=== PATIENT | female | born 1950 | race Caucasian/White ===

== ENCOUNTER 2016-11-05 15:52 | Emergency (ER) | payer MEDICARE ==
[2016-11-05] MEDS ORDERED: oxyCODONE/Acetamin 5/325 MG* TAB PO ONE (18:19)
[2016-11-05 18:31] LABS: Hematocrit 42 % (35-47); Hemoglobin 13.9 g/dl (12.0-16.0); Mean Corpuscular HGB Conc 33 g/dl (31-36); Mean Corpuscular Hemoglobin 29 pg (27-31); Mean Corpuscular Volume 88 fL (80-97); Mean Platelet Volume 8 um3 (7.4-10.4); Red Blood Count 4.75 10^6/ul (4.0-5.4); Red Cell Distribution Width 14 % (10.5-15); White Blood Count 14.9 10^3/ul (3.5-10.8)
[2016-11-05 18:47] LABS: Albumin 4.1 g/dL (3.2-5.2); BUN/Creatinine Ratio 24.7 (8-20); C Reactive Protein 3.86 mg/L (< 5.00); Calcium 9.6 mg/dL (8.6-10.3); EGFR African American 91.3 (>60); Globulin 3.1 g/dL (2-4); Potassium 3.7 mmol/L (3.5-5.0); Total Bilirubin 0.4 mg/dL (0.2-1.0); Total Protein 7.2 g/dL (6.4-8.9)
--- NOTE | 2016-11-05 18:48 | RAD ---
CLINICAL HISTORY: Right flank pain COMPARISON: March 30, 2015 TECHNIQUE: Multiple contiguous axial CT scans were obtained of the abdomen and pelvis, without intravenous contrast enhancement. Coronal and sagittal multiplanar reformations are submitted for review. Oral contrast was not administered. FINDINGS: The study is limited by the lack of intravenous contrast. This limits evaluation of the solid organs and vasculature. LUNG BASES: The lung bases are clear. LIVER: The liver is diffusely low in attenuation compared to the spleen. There are no focal hepatic parenchymal masses. BILE DUCTS: There is no intrahepatic or extrahepatic biliary dilatation. GALLBLADDER: The gallbladder is normal, without pericholecystic inflammatory change. PANCREAS: The pancreas is normal, without mass or ductal dilatation. SPLEEN: Normal in size and appearance. UPPER GI TRACT: Evaluation of the gastrointestinal tract is limited by incomplete gastric distention. There is a 1.7 cm diverticulum of the second stage of the duodenum. SMALL BOWEL AND MESENTERY: The small bowel is normal in contour, course, and caliber. There is no obstruction or dilatation. COLON: There are multiple diverticula of the descending and sigmoid colon. There is no pericolonic inflammatory change. There is a tubular, vermiform, hollow viscus that is blind ending, and originates from the cecum, consistent with a normal appendix. There is no periappendiceal inflammatory change. This is best seen on axial images 111 through 120 ADRENALS: Normal bilaterally. KIDNEYS: A simple right renal cyst is noted. There is no appreciable hydronephrosis or nephrolithiasis BLADDER: The bladder is smooth in contour. PELVIC ORGANS: The pelvic organs are not visualized. AORTA: The aorta is normal. IVC: Unremarkable LYMPH NODES: There is no lymphadenopathy by size criteria. ABDOMINAL WALL: There is no evidence for abdominal wall hernia. BONES AND SOFT TISSUES: There are mild diffuse degenerative changes. OTHER: None IMPRESSION: 1. NO HYDRONEPHROSIS OR NEPHROLITHIASIS. 2. FATTY INFILTRATION OF LIVER. 3. DIVERTICULOSIS
[2016-11-05 19:26] LABS: Urine Bilirubin Negative (Negative); Urine Glucose Negative (Negative); Urine Nitrite Negative (Negative)
--- NOTE | 2016-11-05 19:44 | ED ---
Robert Keys Janilya, scribed for Mulugeta hSen MD on 11/05/16 at 1752 . Abdominal Pain/Female - HPI Summary HPI Summary: A 65 y/o female came in to [facility] presenting w/ a gradual onset of constant right sided back pain under the ribs starting Monday, October 31, 2016. She was seen by her PCP on the same day of onset of the pain. Shingles was ruled out because there were no rashes. Her urinalysis showed e.coli and was put on Abx. For pain management, she was put on Vicodin. Pt states the pain is very severe of 8/10 rating. It is localized in the back, and sometimes, it radiates to the her right flank. Vicodin temporarily decreases the pain to 3/10. Touch makes the pain worse. There is also very mild fever. Pt denies diarrhea, on the opposite, she's had difficulty moving bowels, and so she's been taking a stool softener. Pt denies dysuria, muscle spasms. Upon examination here in the room, there are a few non-prominent pinhead rashes on the right side of her back and a long erythematous rash across her right flank. PMHx ulcerative colitis 10 years ago. - History of Current Complaint Chief Complaint: EDGeneral Stated Complaint: LT FLANK PAIN Time Seen by Provider: 11/05/16 17:49 Hx Obtained From: Patient Onset/Duration: Gradual Onset, Lasting Days, Still Present Timing: Constant Severity Initially: Moderate Severity Currently: Moderate Pain Intensity: 7 Pain Scale Used: 0-10 Numeric Location: Discrete At: RUQ, Flank Radiates: No Aggravating Factor(s): Other: - Touch Alleviating Factor(s): Medications - Vicodin Allergies/Adverse Reactions: Allergies Allergy/AdvReac Type Severity Reaction Status Date / Time Amoxicillin Allergy Severe Rash Verified 03/30/15 13:12 Adhesive Tape Allergy Intermediate Rash Verified 03/30/15 13:12 Clopidogrel [From Plavix] Allergy Unknown Verified 02/15/16 16:22 Reaction Details Sucrose Allergy Unknown Verified 02/15/16 16:22 Reaction Details Pregabalin [From Lyrica] AdvReac Intermediate Altered Verified 03/30/15 13:12 Mental Status Quinolones AdvReac Intermediate See Comment Verified 03/30/15 13:12 NSAIDs AdvReac Unknown See Comment Verified 03/30/15 13:12 HFA Allergy Coughing Uncoded 03/30/15 13:12 beta blockers AdvReac Severe See Comment Uncoded 03/30/15 13:12 keytac AdvReac Intermediate Diarrhea Uncoded 03/30/15 13:12 PMH/Surg Hx/FS Hx/Imm Hx Previously Healthy: Yes Endocrine/Hematology History: Reports: Hx Thyroid Disease - hyperthyroid Denies: Hx Diabetes Cardiovascular History: Reports: Other Cardiovascular Problems/Disorders - cardiomyopathy Denies: Hx Congestive Heart Failure, Hx Hypertension - BORDERLINE, Hx Pacemaker/ICD Respiratory History: Reports: Hx Asthma Denies: Hx Chronic Obstructive Pulmonary Disease (COPD), Other Respiratory Problems/Disorders GI History: Reports: Hx Diverticulosis - and diverticulitis Denies: Hx Ulcer History: Reports: Other Problems/Disorders - bladder prolapse Denies: Hx Renal Disease Musculoskeletal History: Reports: Hx Arthritis Denies: Hx Rheumatoid Arthritis, Hx Osteoporosis Sensory History: Reports: Hx Contacts or Glasses Denies: Hx Hearing Aid Opthamlomology History: Reports: Hx Contacts or Glasses Neurological History: Reports: Other Neuro Impairments/Disorders - 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, menier's Psychiatric History: Reports: Hx Panic Disorder - Cancer History Hx Chemotherapy: No - Surgical History Surgery Procedure, Year, and Place: Hysterectomy Oct 25; bladder biopsy, BLADDER MESH (PROLAPSE); tubal; sinus surgery; heart cath (no stents); Infectious Disease History: No Infectious Disease History: Reports: Hx Hepatitis - Hep A, 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 Denies: Hx Human Immunodeficiency Virus (HIV), History Other Infectious Disease, Traveled Outside the [place] in Last 30 Days - Family History Known Family History: Positive: Hypertension, Other - autoimmune conditions Family History: R & n/C - Social History Occupation: Retired Lives: With Family Alcohol Use: None Hx Substance Use: No Substance Use Type: Reports: None Hx Tobacco Use: Yes Smoking Status (MU): Former Smoker Review of Systems Positive: Fever - mild fever Positive: Other - flank pain Positive: Arthralgia - back pain on the right, Myalgia - back pain on the right Positive: Rash - few rashes on right side of back and right flank All Other Systems Reviewed And Are Negative: Yes Physical Exam Triage Information Reviewed: Yes Vital Signs On Initial Exam: Initial Vitals Temp Pulse Resp BP Pulse Ox 97.9 F 96 20 174/86 97 11/05/16 16:04 11/05/16 16:04 11/05/16 16:04 11/05/16 16:04 11/05/16 16:04 Vital Signs Reviewed: Yes Appearance: Positive: Well-Appearing, No Pain Distress Skin: Positive: Warm, Skin Color Reflects Adequate Perfusion, Dry, Other - Erythematous rash on right lower lateral chest of 8 cm by 4 cm measurements Head/Face: Positive: Normal Head/Face Inspection Eyes: Positive: EOMI, FILOMENA ENT: Positive: Normal ENT inspection Neck: Positive: Supple, Nontender Respiratory/Lung Sounds: Positive: Clear to Auscultation, Breath Sounds Present Cardiovascular: Positive: RRR Abdomen Description: Positive: Nontender, Soft Bowel Sounds: Positive: Present Musculoskeletal: Positive: Normal, Strength/ROM Intact Neurological: Positive: Normal, Sensory/Motor Intact, Alert, Oriented to Person Place, Time Psychiatric: Positive: Affect/Mood Appropriate Diagnostics - Vital Signs Vital Signs Temp Pulse Resp BP Pulse Ox 11/05/16 17:23 97.6 F 91 20 171/90 97 11/05/16 16:04 97.9 F 96 20 174/86 97 - Laboratory Lab Results: Lab Results 11/05/16 11/05/16 11/05/16 Range/Units 18:20 18:20 18:20 WBC 14.9 H (3.5-10.8) 10^3/ul RBC 4.75 (4.0-5.4) 10^6/ul Hgb 13.9 (12.0-16.0) g/dl Hct 42 (35-47) % MCV 88 (80-97) fL MCH 29 (27-31) pg MCHC 33 (31-36) g/dl RDW 14 (10.5-15) % Plt Count 290 (150-450) 10^3/ul MPV 8 (7.4-10.4) um3 Neut % (Auto) 86.5 H (38-83) % Lymph % (Auto) 10.6 L (25-47) % Hinds % (Auto) 2.2 (1-9) % Eos % (Auto) 0.1 (0-6) % Baso % (Auto) 0.6 (0-2) % Absolute Neuts (auto) 12.9 H (1.5-7.7) 10^3/ul Absolute Lymphs (auto) 1.6 (1.0-4.8) 10^3/ul Absolute Monos (auto) 0.3 (0-0.8) 10^3/ul Absolute Eos (auto) 0 (0-0.6) 10^3/ul Absolute Basos (auto) 0.1 (0-0.2) 10^3/ul Absolute Nucleated RBC 0 10^3/ul Nucleated RBC % 0 Sodium 135 (133-145) mmol/L Potassium 3.7 (3.5-5.0) mmol/L Chloride 102 (101-111) mmol/L Carbon Dioxide 28 (22-32) mmol/L Anion Gap 5 (2-11) mmol/L BUN 20 (6-24) mg/dL Creatinine 0.81 (0.51-0.95) mg/dL Est GFR ( Amer) 91.3 (>60) Est GFR (Non-Af Amer) 71.0 (>60) BUN/Creatinine Ratio 24.7 H (8-20) Glucose 124 H (70-100) mg/dL Lactic Acid 1.0 (0.5-2.0) mmol/L Calcium 9.6 (8.6-10.3) mg/dL Total Bilirubin 0.40 (0.2-1.0) mg/dL AST 19 (13-39) U/L ALT 17 (7-52) U/L Alkaline Phosphatase 66 (34-104) U/L C-Reactive Protein 3.86 (< 5.00) mg/L Total Protein 7.2 (6.4-8.9) g/dL Albumin 4.1 (3.2-5.2) g/dL Globulin 3.1 (2-4) g/dL Albumin/Globulin Ratio 1.3 (1-3) Lipase 24 (11.0-82.0) U/L Urine Color Urine Appearance Urine pH (5-9) Ur Specific [place] (1.010-1.030) Urine Protein (Negative) Urine Ketones (Negative) Urine Blood (Negative) Urine Nitrate (Negative) Urine Bilirubin (Negative) Urine Urobilinogen (Negative) Ur Leukocyte Esterase (Negative) Urine Glucose (Negative) 11/05/16 Range/Units 19:08 WBC (3.5-10.8) 10^3/ul RBC (4.0-5.4) 10^6/ul Hgb (12.0-16.0) g/dl Hct (35-47) % MCV (80-97) fL MCH (27-31) pg MCHC (31-36) g/dl RDW (10.5-15) % Plt Count (150-450) 10^3/ul MPV (7.4-10.4) um3 Neut % (Auto) (38-83) % Lymph % (Auto) (25-47) % Hinds % (Auto) (1-9) % Eos % (Auto) (0-6) % Baso % (Auto) (0-2) % Absolute Neuts (auto) (1.5-7.7) 10^3/ul Absolute Lymphs (auto) (1.0-4.8) 10^3/ul Absolute Monos (auto) (0-0.8) 10^3/ul Absolute Eos (auto) (0-0.6) 10^3/ul Absolute Basos (auto) (0-0.2) 10^3/ul Absolute Nucleated RBC 10^3/ul Nucleated RBC % Sodium (133-145) mmol/L Potassium (3.5-5.0) mmol/L Chloride (101-111) mmol/L Carbon Dioxide (22-32) mmol/L Anion Gap (2-11) mmol/L BUN (6-24) mg/dL Creatinine (0.51-0.95) mg/dL Est GFR ( Amer) (>60) Est GFR (Non-Af Amer) (>60) BUN/Creatinine Ratio (8-20) Glucose (70-100) mg/dL Lactic Acid (0.5-2.0) mmol/L Calcium (8.6-10.3) mg/dL Total Bilirubin (0.2-1.0) mg/dL AST (13-39) U/L ALT (7-52) U/L Alkaline Phosphatase (34-104) U/L C-Reactive Protein (< 5.00) mg/L Total Protein (6.4-8.9) g/dL Albumin (3.2-5.2) g/dL Globulin (2-4) g/dL Albumin/Globulin Ratio (1-3) Lipase (11.0-82.0) U/L Urine Color Yellow Urine Appearance Clear Urine pH 7.0 (5-9) Ur Specific [place] 1.010 (1.010-1.030) Urine Protein Negative (Negative) Urine Ketones Negative (Negative) Urine Blood Negative (Negative) Urine Nitrate Negative (Negative) Urine Bilirubin Negative (Negative) Urine Urobilinogen Negative (Negative) Ur Leukocyte Esterase Negative (Negative) Urine Glucose Negative (Negative) Result Diagrams: 11/05/16 18:20 11/05/16 18:20 Lab Statement: Any lab studies that have been ordered have been reviewed, and results considered in the medical decision making process. - CT abd/pel CT Interpretation: Positive (See Comments) - IMPRESSION: 1. NO HYDRONEPHROSIS OR NEPHROLITHIASIS. 2. FATTY INFILTRATION OF LIVER. 3. DIVERTICULOSIS CT Interpretation Completed By: Radiologist Abdominal Pain Fem Course/Dx - Course Course Of Treatment: RASH FOUND ON RT LOWER LATERAL CHEST WHICH MAY REPRESENT SHINGLES. DISCUSSED RESULTS WITH PATIENT. SHE WILL CONTINUE THE MACROBID AND ANTIVIRAL. WE DISCUSSED INCREASING HER NORCO 5/325MG TO Q 4 HOURS PRN. DISCHARGE HOME STABLE. - Diagnoses Provider Diagnoses: Flank pain, Shingles Discharge - Discharge Plan Condition: Stable Disposition: HOME Patient Education Materials: Shingles (ED), Flank Pain (ED) Referrals: Dean Jasmine MD [Primary Care Provider] - Additional Instructions: FOLLOW UP WITH YOUR DOCTOR. YOU CAN TAKE YOUR NORCO 5/325MG EVERY 4 HOURS NEEDED. RETURN TO THE EMERGENCY DEPARTMENT FOR ANY WORSENING OF YOUR CONDITION; PAIN, FEVER, YOU FEEL ILL OR QUESTIONS OR CONCERNS. The documentation as recorded by the Robert thomas Janilya accurately reflects the service I personally performed and the decisions made by me, Mulugeta Shen MD.
[2016-11-05 20:07] VITALS: BP 152/88
== END 2016-11-05 19:52 | disposition home or self-care (01) ==
LOC: ED 15:52
DX: R10.9 Unspecified abdominal pain (principal); B02.9 Zoster without complications; E03.9 Hypothyroidism, unspecified; Z87.891 Personal history of nicotine dependence; I42.9 Cardiomyopathy, unspecified; J45.909 Unspecified asthma, uncomplicated; Z88.0 Allergy status to penicillin; K76.0 Fatty (change of) liver, not elsewhere classified; K57.90 Diverticulosis of intestine, part unspecified, without perforation or abscess without bleeding
CPT/HCPCS: 36415; 74176; 80053; 81003; 83605; 83690; 85025; 86140; 99283; A9270-GY

== ENCOUNTER 2016-11-09 14:45 | Emergency (ER) | payer MEDICARE ==
[2016-11-09 17:44] VITALS: BP 151/66
[2016-11-09] MEDS ORDERED: oxyCODONE/Acetamin 10/325(NF) TAB PO ONE (19:02)
--- NOTE | 2016-11-09 19:14 | ED ---
Efren Keys Billy, scribed for Mulugeta Shen MD on 11/09/16 at 1841 . Complex/Multi-Sys Presentation - HPI Summary HPI Summary: Patient is a 65 year-old female coming to [facility] presenting with increased pain and rash which she believes is due to shingles. Rash is located on the right- sided thoracic back region, where she complains of pain "like a knife in her back." She also complains of right-sided abdominal pain, worse with palpation. She states that she has had no changes in appetite or bladder/bowel movements. Her pain has been improved with oxycodone; pain severity 8/10 in the morning, but reduced to 5/10 with oxycodone. - History Of Current Complaint Chief Complaint: EDGeneral Time Seen by Provider: 11/09/16 18:30 Hx Obtained From: Patient Onset/Duration: Gradual Onset, Lasting Days, Still Present Timing: Constant Severity Currently: Moderate Severity Initially: Moderate Location: Pain At: - right-sided mid-back and right-sided abdomen Aggravating Factor(s): palpation makes abdominal pain worse Alleviating Factor(s): oxycodone Associated Signs And Symptoms: Positive: Abdominal Pain, Other - rash - Allergies/Home Medications Allergies/Adverse Reactions: Allergies Allergy/AdvReac Type Severity Reaction Status Date / Time Amoxicillin Allergy Severe Rash Verified 03/30/15 13:12 Adhesive Tape Allergy Intermediate Rash Verified 03/30/15 13:12 Clopidogrel [From Plavix] Allergy Unknown Verified 02/15/16 16:22 Reaction Details Sucrose Allergy Unknown Verified 02/15/16 16:22 Reaction Details Pregabalin [From Lyrica] AdvReac Intermediate Altered Verified 03/30/15 13:12 Mental Status Quinolones AdvReac Intermediate See Comment Verified 03/30/15 13:12 NSAIDs AdvReac Unknown See Comment Verified 03/30/15 13:12 HFA Allergy Coughing Uncoded 03/30/15 13:12 beta blockers AdvReac Severe See Comment Uncoded 03/30/15 13:12 keytac AdvReac Intermediate Diarrhea Uncoded 03/30/15 13:12 PMH/Surg Hx/FS Hx/Imm Hx Endocrine/Hematology History: Reports: Hx Thyroid Disease - hyperthyroid Denies: Hx Diabetes Cardiovascular History: Reports: Other Cardiovascular Problems/Disorders - cardiomyopathy Denies: Hx Congestive Heart Failure, Hx Hypertension - BORDERLINE, Hx Pacemaker/ICD Respiratory History: Reports: Hx Asthma Denies: Hx Chronic Obstructive Pulmonary Disease (COPD), Other Respiratory Problems/Disorders GI History: Reports: Hx Diverticulosis - and diverticulitis Denies: Hx Ulcer History: Reports: Other Problems/Disorders - bladder prolapse Denies: Hx Renal Disease Musculoskeletal History: Reports: Hx Arthritis Denies: Hx Rheumatoid Arthritis, Hx Osteoporosis Sensory History: Reports: Hx Contacts or Glasses Denies: Hx Hearing Aid Opthamlomology History: Reports: Hx Contacts or Glasses Neurological History: Reports: Other Neuro Impairments/Disorders - 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, menier's Psychiatric History: Reports: Hx Panic Disorder - Cancer History Hx Chemotherapy: No - Surgical History Surgery Procedure, Year, and Place: Hysterectomy Oct 25; bladder biopsy, BLADDER MESH (PROLAPSE); tubal; sinus surgery; heart cath (no stents); Infectious Disease History: No Infectious Disease History: Reports: Hx Hepatitis - Hep A, 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 Denies: Hx Human Immunodeficiency Virus (HIV), History Other Infectious Disease, Traveled Outside the [place] in Last 30 Days - Family History Known Family History: Positive: Hypertension, Other - autoimmune conditions - Social History Alcohol Use: None Hx Substance Use: No Substance Use Type: Reports: None Hx Tobacco Use: Yes Smoking Status (MU): Former Smoker Review of Systems Positive: Abdominal Pain Positive: Rash, Other - pain d/t shingles in the back Neurological: Other - "vertigo" All Other Systems Reviewed And Are Negative: Yes Physical Exam Triage Information Reviewed: Yes Vital Signs On Initial Exam: Initial Vitals Temp Pulse Resp BP Pulse Ox 99.9 F 90 20 162/70 97 11/09/16 14:49 11/09/16 14:49 11/09/16 14:49 11/09/16 14:49 11/09/16 14:49 Vital Signs Reviewed: Yes Appearance: Positive: Well-Appearing, No Pain Distress Skin: Positive: Warm, Skin Color Reflects Adequate Perfusion, Dry, Other - Approximately a dozen punctate erythematous lesions on the right lower thoracic skin. Head/Face: Positive: Normal Head/Face Inspection Eyes: Positive: EOMI, FILOMENA ENT: Positive: Normal ENT inspection Neck: Positive: Supple, Nontender Respiratory/Lung Sounds: Positive: Clear to Auscultation, Breath Sounds Present Cardiovascular: Positive: RRR Abdomen Description: Positive: Soft, Other: - Tenderness of the right-sided abdomen. Musculoskeletal: Positive: Normal, Strength/ROM Intact Neurological: Positive: Normal, Sensory/Motor Intact, Alert, Oriented to Person Place, Time Psychiatric: Positive: Affect/Mood Appropriate Diagnostics - Vital Signs Vital Signs Temp Pulse Resp BP Pulse Ox 11/09/16 17:35 98.4 F 67 16 151/66 98 11/09/16 16:15 98.4 F 71 18 165/71 98 11/09/16 14:49 99.9 F 90 20 162/70 97 - Laboratory Lab Statement: Any lab studies that have been ordered have been reviewed, and results considered in the medical decision making process. Complex Multi-Symp Course/Dx Assessment/Plan: WELL IN ED. DISCHARGE HOME STABLE. - Diagnoses Provider Diagnoses: Shingles, Vertigo Discharge - Discharge Plan Condition: Stable Disposition: HOME Prescriptions: Diazepam TAB(*) [Valium TAB(*)] 5 mg PO TID PRN #15 tab MDD 3 PRN Reason: Vertigo Meclizine TAB* [Antivert 12.5 TAB*] 25 mg PO TID PRN #15 tab PRN Reason: Dizziness oxyCODONE/Acetamin 10/325(NF) [Percocet 10/325 (NF)] 1 tab PO Q4HR PRN #20 tab MDD 6 PRN Reason: Pain Patient Education Materials: Shingles (ED), Vertigo (ED) Referrals: Dean Jasmine MD [Primary Care Provider] - Additional Instructions: FOLLOW UP WITH YOUR DOCTOR. RETURN TO THE EMERGENCY DEPARTMENT FOR ANY WORSENING OF YOUR CONDITION OR QUESTIONS OR CONCERNS. The documentation as recorded by the Efren thomas Billy accurately reflects the service I personally performed and the decisions made by me, Mulugeta Shen MD.
[2016-11-09] MEDS ORDERED: oxyCODONE/Acetamin 5/325 MG* TAB PO ONE (20:00)
[2016-11-09] MEDS ORDERED: oxyCODONE TAB* 5 MG TAB PO ONE (20:00)
[2016-11-09] MEDS ORDERED: oxyCODONE SR TAB(*) 10 MG TAB.SR PO ONE (20:09)
== END 2016-11-09 20:15 | disposition home or self-care (01) ==
LOC: ED 14:45
DX: B02.9 Zoster without complications (principal); R42 Dizziness and giddiness; R10.84 Generalized abdominal pain; Z87.891 Personal history of nicotine dependence
CPT/HCPCS: 99282; A9270-GY

== ENCOUNTER 2017-02-04 21:01 | Emergency (ER) | payer MEDICARE ==
--- NOTE | 2017-02-04 22:44 | RAD ---
INDICATION: Pain and swelling. COMPARISON: October 04, 2007 TECHNIQUE: Duplex interrogation of the Lowerextremity was performed. FINDINGS: Deep veins: The common femoral, great saphenous, profunda femoris, proximal, mid, and distal deep femoral, popliteal, posterior tibial, and peroneal veins are patent. There is normal compressibility, augmentation, and phasic flow. Superficial veins: There are no findings of superficial thrombophlebitis. Popliteal fossa:There is no evidence of a popliteal cyst. Soft tissues:There are no soft tissue abnormalities. IMPRESSION: No evidence of deep venous thrombosis
[2017-02-04 23:14] VITALS: BP 148/76
--- NOTE | 2017-02-04 23:19 | ED ---
Lower Extremity - HPI Summary HPI Summary: Patient presents with acute onset of right upper lateral calf pain and swelling that began without known incident. She has been treated for right hip pain over the last month and recieved a cortisone inject on Sunday. She was told to "take it easy" and today was the first day she has been really walking since the shot. She was walking when the pain began and has it has been intermittent since then. She has a significant heart history and worries she may have a blood clot. She denies warmth, redness, SOB or CP. 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 Mechanism Of Injury: Unknown Onset of Pain: Hours Onset/Duration: Still Present Severity Initially: Severe Severity Currently: Mild Pain Intensity: 0 Timing: Intermittent, Lasting Minutes Location: Is Discrete @ - right proximal lateral calf Character Of Pain: Sharp, Aching Associated Signs And Symptoms: Positive: Swelling - mild Aggravating Factor(s): Ambulation, Other - touch Alleviating Factor(s): Nothing Able to Bear Weight: Yes - Allergies/Home Medications Allergies/Adverse Reactions: Allergies Allergy/AdvReac Type Severity Reaction Status Date / Time Amoxicillin Allergy Severe Rash Verified 02/04/17 21:37 Adhesive Tape Allergy Intermediate Rash Verified 02/04/17 21:37 Clopidogrel [From Plavix] Allergy Unknown Verified 02/04/17 21:37 Reaction Details Nitrofurantoin Allergy Bleeding Verified 02/04/17 21:37 Sucrose Allergy Unknown Verified 02/04/17 21:37 Reaction Details Pregabalin [From Lyrica] AdvReac Intermediate Altered Verified 02/04/17 21:37 Mental Status Quinolones AdvReac Intermediate See Comment Verified 02/04/17 21:37 NSAIDs AdvReac Unknown See Comment Verified 02/04/17 21:37 HFA Allergy Coughing Uncoded 03/30/15 13:12 beta blockers AdvReac Severe See Comment Uncoded 03/30/15 13:12 keytac AdvReac Intermediate Diarrhea Uncoded 03/30/15 13:12 PMH/Surg Hx/FS Hx/Imm Hx Endocrine/Hematology History: Reports: Hx Thyroid Disease - hyperthyroid Denies: Hx Diabetes Cardiovascular History: Reports: Other Cardiovascular Problems/Disorders - hx viral cardiomyopathy 2004, cured Denies: Hx Congestive Heart Failure, Hx Hypertension - BORDERLINE, Hx Pacemaker/ICD Respiratory History: Reports: Hx Asthma - under control with steroid inhalers Denies: Hx Chronic Obstructive Pulmonary Disease (COPD), Other Respiratory Problems/Disorders GI History: Reports: Hx Diverticulosis - and diverticulitis Denies: Hx Ulcer History: Reports: Other Problems/Disorders - bladder prolapse Denies: Hx Renal Disease Musculoskeletal History: Reports: Hx Arthritis Denies: Hx Rheumatoid Arthritis, Hx Osteoporosis Sensory History: Reports: Hx Contacts or Glasses Denies: Hx Hearing Aid Opthamlomology History: Reports: Hx Contacts or Glasses Neurological History: Reports: Other Neuro Impairments/Disorders - 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, menier's Psychiatric History: Reports: Hx Panic Disorder - Cancer History Hx Chemotherapy: No - Surgical History Surgery Procedure, Year, and Place: Hysterectomy Oct 25; bladder biopsy, BLADDER MESH (PROLAPSE); tubal; sinus surgery; heart cath (no stents); Infectious Disease History: No Infectious Disease History: Reports: Hx Hepatitis - Hep A, 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 Denies: Hx Human Immunodeficiency Virus (HIV), History Other Infectious Disease, Traveled Outside the [place] in Last 30 Days - Family History Known Family History: Positive: None, Hypertension, Other - autoimmune conditions Family History: R & n/C - Social History Occupation: Retired Lives: With Family Alcohol Use: None Hx Substance Use: No Substance Use Type: Reports: None Hx Tobacco Use: Yes Smoking Status (MU): Former Smoker Review of Systems Negative: Fever, Chills Negative: Chest Pain Negative: Shortness Of Breath Positive: Myalgia, Edema - mild. Negative: Decreased ROM Negative: Paresthesia, Numbness All Other Systems Reviewed And Are Negative: Yes Physical Exam Triage Information Reviewed: Yes Vital Signs On Initial Exam: Initial Vitals Temp Pulse Resp BP Pulse Ox 97.9 F 80 16 159/76 96 02/04/17 21:12 02/04/17 21:12 02/04/17 21:12 02/04/17 21:12 02/04/17 21:12 Vital Signs Reviewed: Yes Appearance: Positive: Well-Appearing, Well-Nourished, Pain Distress Skin: Positive: Warm, Skin Color Reflects Adequate Perfusion, Dry, Soft Head/Face: Positive: Normal Head/Face Inspection Eyes: Positive: EOMI, FILOMENA, Conjunctiva Clear ENT: Positive: Hearing grossly normal Respiratory/Lung Sounds: Positive: Breath Sounds Present Cardiovascular: Positive: RRR Musculoskeletal: Positive: Strength/ROM Intact, Pain @ - TTP med/lat joint lines , LCL and anterolateral proximal calf; stable varus/valgus stress;neg patellar grind; negative blanca calf pain, Edema Right - mild edema right anterolateral proximal calf Neurological: Positive: Sensory/Motor Intact, Alert, Oriented to Person Place, Time, NV Bundle Intact Distally, Normal Gait Psychiatric: Positive: Affect/Mood Appropriate AVPU Assessment: Alert Diagnostics - Vital Signs Vital Signs Temp Pulse Resp BP Pulse Ox 02/04/17 23:13 98 F 76 18 148/76 02/04/17 21:12 97.9 F 80 16 159/76 96 - Laboratory Lab Statement: Any lab studies that have been ordered have been reviewed, and results considered in the medical decision making process. - Ultrasound No standard instances Ultrasound Interpretation: No Acute Changes Ultrasound Interpretation Completed By: Radiologist Lower Extremity Course/Dx - Diagnoses Differential Diagnosis/HQI/PQRI: Positive: Arthritis, Bursitis, Contusion, DVT, Fracture (Closed), Sprain, Strain Provider Diagnoses: Right calf pain Discharge - Discharge Plan Condition: Stable Disposition: HOME Patient Education Materials: Muscle Strain (ED) Referrals: Dean Jasmine MD [Primary Care Provider] - Additional Instructions: Please rest, use Voltaren, ice and/or heat as needed for comfort. Return to the emergency department if symptoms worsen.
== END 2017-02-04 23:13 | disposition home or self-care (01) ==
LOC: ED 21:01
DX: M79.604 Pain in right leg (principal); Z87.891 Personal history of nicotine dependence; R60.9 Edema, unspecified
CPT/HCPCS: 99282

== ENCOUNTER 2017-03-05 20:36 | Emergency (ER) | payer MEDICARE ==
--- NOTE | 2017-03-05 22:05 | RAD ---
INDICATION: Chest pain COMPARISON: December 07, 2016 TECHNIQUE: PA and lateral dual-energy views were obtained. FINDINGS: Bones/Soft Tissues: There are no acute bony findings. Cardiomediastinal: The cardiomediastinal silhouette is normal. Lungs: There are no infiltrates. Pleura: There are no pleural effusions. Other: None IMPRESSION: NO ACTIVE DISEASE.
[2017-03-05 22:19] LABS: Hematocrit 41 % (35-47); Hemoglobin 13.4 g/dl (12.0-16.0); Mean Corpuscular HGB Conc 33 g/dl (31-36); Mean Corpuscular Hemoglobin 29 pg (27-31); Mean Corpuscular Volume 88 fL (80-97); Mean Platelet Volume 8 um3 (7.4-10.4); Red Blood Count 4.64 10^6/ul (4.0-5.4); Red Cell Distribution Width 15 % (10.5-15); White Blood Count 14.1 10^3/ul (3.5-10.8)
[2017-03-05 22:22] LABS: Add Diff/Slide Review? Slide Review Added; Comments Flag Yes
[2017-03-05 22:34] LABS: Albumin 4.1 g/dL (3.2-5.2); BUN/Creatinine Ratio 34.8 (8-20); Calcium 9.6 mg/dL (8.6-10.3); EGFR African American 109.5 (>60); EGFR Non-African American 85.1 (>60); Globulin 3.2 g/dL (2-4); Total Bilirubin 0.2 mg/dL (0.2-1.0); Total Protein 7.3 g/dL (6.4-8.9)
--- NOTE | 2017-03-06 00:28 | ED ---
Charbel Keys Salem, scribed for Bennett Aguilar MD on 03/05/17 at 2056 . HPI Chest Pain - HPI Summary HPI Summary: Patient is a 66 y/o F who presents to the ED with intermittent squeezing mid- sternal CP for the last 1.5 hours. She reports mild nausea, but denies edema. She also denies taking anything for pain, but reports that CP worsened when she began to cry. Pt was seen in the ED before for CP. PMHx of CVA and PE. - History of Current Complaint Chief Complaint: EDChestPainROMI Time Seen by Provider: 03/05/17 20:51 Hx Obtained From: Patient Onset/Duration: Started Hours Ago, Atraumatic, Still Present Timing: Intermittent Initial Severity: Moderate Current Severity: Moderate Pain Intensity: 4 Pain Scale Used: 0-10 Numeric Chest Pain Location: Mid Sternal Chest Pain Radiates: No Character: Pressure/Squeezing Aggravating Factor(s): Other: - Crying. Alleviating Factor(s): Nothing Associated Signs and Symptoms: Positive: Chest Pain, Nausea, Edema - Additional Pertinent History Primary Care Physician: [id number] - Allergy/Home Medications Allergies/Adverse Reactions: Allergies Allergy/AdvReac Type Severity Reaction Status Date / Time Amoxicillin Allergy Severe Rash Verified 03/05/17 20:39 Adhesive Tape Allergy Intermediate Rash Verified 03/05/17 20:39 Clopidogrel [From Plavix] Allergy Unknown Verified 03/05/17 20:39 Reaction Details Nitrofurantoin Allergy Bleeding Verified 03/05/17 20:39 Sucrose Allergy Unknown Verified 03/05/17 20:39 Reaction Details Pregabalin [From Lyrica] AdvReac Intermediate Altered Verified 03/05/17 20:39 Mental Status Quinolones AdvReac Intermediate See Comment Verified 03/05/17 20:39 NSAIDs AdvReac Unknown See Comment Verified 03/05/17 20:39 HFA Allergy Coughing Uncoded 03/05/17 20:39 beta blockers AdvReac Severe See Comment Uncoded 03/05/17 20:39 keytac AdvReac Intermediate Diarrhea Uncoded 03/05/17 20:39 PMH/Surg Hx/FS Hx/Imm Hx Endocrine/Hematology History: Reports: Hx Thyroid Disease - hyperthyroid Denies: Hx Diabetes Cardiovascular History: Reports: Other Cardiovascular Problems/Disorders - hx viral cardiomyopathy 2004, cured Denies: Hx Congestive Heart Failure, Hx Hypertension - BORDERLINE, Hx Pacemaker/ICD Respiratory History: Reports: Hx Asthma - under control with steroid inhalers Denies: Hx Chronic Obstructive Pulmonary Disease (COPD), Other Respiratory Problems/Disorders GI History: Reports: Hx Diverticulosis - and diverticulitis Denies: Hx Ulcer History: Reports: Other Problems/Disorders - bladder prolapse Denies: Hx Renal Disease Musculoskeletal History: Reports: Hx Arthritis Denies: Hx Rheumatoid Arthritis, Hx Osteoporosis Sensory History: Reports: Hx Contacts or Glasses Denies: Hx Hearing Aid Opthamlomology History: Reports: Hx Contacts or Glasses Neurological History: Reports: Other Neuro Impairments/Disorders - 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, menier's Psychiatric History: Reports: Hx Panic Disorder - Cancer History Hx Chemotherapy: No - Surgical History Surgery Procedure, Year, and Place: Hysterectomy Oct 25; bladder biopsy, BLADDER MESH (PROLAPSE); tubal; sinus surgery; heart cath (no stents); Infectious Disease History: No Infectious Disease History: Reports: Hx Hepatitis - Hep A, 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 Denies: Hx Human Immunodeficiency Virus (HIV), History Other Infectious Disease, Traveled Outside the [place] in Last 30 Days - Family History Known Family History: Positive: Hypertension, Other - autoimmune conditions - Social History Alcohol Use: None Hx Substance Use: No Substance Use Type: Reports: None Hx Tobacco Use: Yes Smoking Status (MU): Former Smoker Review of Systems Negative: Fever Positive: Chest Pain Positive: Nausea Negative: Edema All Other Systems Reviewed And Are Negative: Yes Physical Exam Triage Information Reviewed: Yes Vital Signs On Initial Exam: Initial Vitals Temp Pulse Resp BP Pulse Ox 97.8 F 95 18 143/73 99 03/05/17 20:40 03/05/17 20:40 03/05/17 20:40 03/05/17 20:40 03/05/17 20:40 Vital Signs Reviewed: Yes Appearance: Positive: Well-Appearing, No Pain Distress Skin: Positive: Warm, Skin Color Reflects Adequate Perfusion, Dry Head/Face: Positive: Normal Head/Face Inspection Eyes: Positive: Normal Neck: Positive: Supple, Nontender Respiratory/Lung Sounds: Positive: Clear to Auscultation, Breath Sounds Present , Other - Tender to right para-sternum area. Cardiovascular: Positive: RRR Abdomen Description: Positive: Nontender, Soft Bowel Sounds: Positive: Present Musculoskeletal: Positive: Normal Neurological: Positive: Normal Psychiatric: Positive: Normal, Affect/Mood Appropriate Diagnostics - Vital Signs Vital Signs Temp Pulse Resp BP Pulse Ox 03/05/17 20:40 97.8 F 95 18 143/73 99 - Laboratory Lab Results: Lab Results 03/05/17 03/05/17 03/05/17 Range/Units 22:10 22:10 22:10 WBC 14.1 H (3.5-10.8) 10^3/ul RBC 4.64 (4.0-5.4) 10^6/ul Hgb 13.4 (12.0-16.0) g/dl Hct 41 (35-47) % MCV 88 (80-97) fL MCH 29 (27-31) pg MCHC 33 (31-36) g/dl RDW 15 (10.5-15) % Plt Count 353 (150-450) 10^3/ul MPV 8 (7.4-10.4) um3 Neut % (Auto) 67.8 (38-83) % Lymph % (Auto) 22.1 L (25-47) % Brewster % (Auto) 6.0 (1-9) % Eos % (Auto) 3.6 (0-6) % Baso % (Auto) 0.5 (0-2) % Absolute Neuts (auto) 9.5 H (1.5-7.7) 10^3/ul Absolute Lymphs (auto) 3.1 (1.0-4.8) 10^3/ul Absolute Monos (auto) 0.9 H (0-0.8) 10^3/ul Absolute Eos (auto) 0.5 (0-0.6) 10^3/ul Absolute Basos (auto) 0.1 (0-0.2) 10^3/ul Absolute Nucleated RBC 0.01 10^3/ul Nucleated RBC % 0 D-Dimer, Quantitative 312 H (Less Than 230) ng/mL Sodium 137 (133-145) mmol/L Potassium 3.0 L (3.5-5.0) mmol/L Chloride 101 (101-111) mmol/L Carbon Dioxide 30 (22-32) mmol/L Anion Gap 6 (2-11) mmol/L BUN 24 (6-24) mg/dL Creatinine 0.69 (0.51-0.95) mg/dL Est GFR ( Amer) 109.5 (>60) Est GFR (Non-Af Amer) 85.1 (>60) BUN/Creatinine Ratio 34.8 H (8-20) Glucose 88 (70-100) mg/dL Lactic Acid (0.5-2.0) mmol/L Calcium 9.6 (8.6-10.3) mg/dL Total Bilirubin 0.20 (0.2-1.0) mg/dL AST 20 (13-39) U/L ALT 17 (7-52) U/L Alkaline Phosphatase 66 (34-104) U/L Troponin I 0.00 (<0.04) ng/mL Total Protein 7.3 (6.4-8.9) g/dL Albumin 4.1 (3.2-5.2) g/dL Globulin 3.2 (2-4) g/dL Albumin/Globulin Ratio 1.3 (1-3) 03/05/17 Range/Units 22:10 WBC (3.5-10.8) 10^3/ul RBC (4.0-5.4) 10^6/ul Hgb (12.0-16.0) g/dl Hct (35-47) % MCV (80-97) fL MCH (27-31) pg MCHC (31-36) g/dl RDW (10.5-15) % Plt Count (150-450) 10^3/ul MPV (7.4-10.4) um3 Neut % (Auto) (38-83) % Lymph % (Auto) (25-47) % Brewster % (Auto) (1-9) % Eos % (Auto) (0-6) % Baso % (Auto) (0-2) % Absolute Neuts (auto) (1.5-7.7) 10^3/ul Absolute Lymphs (auto) (1.0-4.8) 10^3/ul Absolute Monos (auto) (0-0.8) 10^3/ul Absolute Eos (auto) (0-0.6) 10^3/ul Absolute Basos (auto) (0-0.2) 10^3/ul Absolute Nucleated RBC 10^3/ul Nucleated RBC % D-Dimer, Quantitative (Less Than 230) ng/mL Sodium (133-145) mmol/L Potassium (3.5-5.0) mmol/L Chloride (101-111) mmol/L Carbon Dioxide (22-32) mmol/L Anion Gap (2-11) mmol/L BUN (6-24) mg/dL Creatinine (0.51-0.95) mg/dL Est GFR ( Amer) (>60) Est GFR (Non-Af Amer) (>60) BUN/Creatinine Ratio (8-20) Glucose (70-100) mg/dL Lactic Acid 0.7 (0.5-2.0) mmol/L Calcium (8.6-10.3) mg/dL Total Bilirubin (0.2-1.0) mg/dL AST (13-39) U/L ALT (7-52) U/L Alkaline Phosphatase (34-104) U/L Troponin I (<0.04) ng/mL Total Protein (6.4-8.9) g/dL Albumin (3.2-5.2) g/dL Globulin (2-4) g/dL Albumin/Globulin Ratio (1-3) Result Diagrams: 03/05/17 22:10 03/05/17 22:10 Lab Statement: Any lab studies that have been ordered have been reviewed, and results considered in the medical decision making process. - Radiology CXR Radiology Interpretation Completed By: Radiologist - IMPRESSION: NO ACTIVE DISEASE. - EKG 2043 EKG Interpretation: NSR @ 90 bpm. PVC. - Additional Comments Diagnostic Additional Comments: Trop 1: 0.00 Re-Evaluation - Re-Evaluation First Eval Re-Evaluation Time: 23:23 Comment: Updated pt. Pending second trop. Chest Pain Course/Dx - Course Course Of Treatment: Ms. Huffman presented with an atypical pain that started today. She has been stable in the ED and her initial W/U is nondiagnostic. Her WBC's are slightly elevated at 14 and her d-dimer is also at 312. She has reproducible CP but she also has a history of PE and is currently awaiting a repeat trop and CTA of her chest. I anticipate she will go home if they are negative with a chest wall pain. - Diagnoses Provider Diagnoses: Chest pain Discharge - Discharge Plan Condition: Stable Disposition: OTHER Discharge Disposition Comment: Sign out to Dr. Chapman. Pending Troponin. Patient Education Materials: Chest Pain (ED) Referrals: Dean Jasmine MD [Primary Care Provider] - Additional Instructions: Please follow up with your primary care provider. The documentation as recorded by the Charbel thomas Salem accurately reflects the service I personally performed and the decisions made by me, Bennett Aguilar MD.
[2017-03-06 00:34] VITALS: BP 131/58
--- NOTE | 2017-03-06 02:02 | ED ---
Progress - Progress Note Progress Note: pt signed out to me by DR. Aguilar, pt awaiting a second troponin. Before leaving Dr. Aguilar was going to put in a cta because of a mildly elevated ddimer. The pt is now not wanting to wait for the CTA and upon questioning the pt she has no risk factors for PE and she does not have a pleuritic component to her pain. Pt will be discharged home Re-Evaluation - Re-Evaluation First Eval Re-Evaluation Time: 23:23 Comment: Updated pt. Pending second trop. Course/Dx - Course Course Of Treatment: Ms. Huffman presented with an atypical pain that started today. She has been stable in the ED and her initial W/U is nondiagnostic. Her WBC's are slightly elevated at 14 and her d-dimer is also at 312. She has reproducible CP but she also has a history of PE and is currently awaiting a repeat trop and CTA of her chest. I anticipate she will go home if they are negative with a chest wall pain. - Diagnoses Provider Diagnoses: Chest pain
== END 2017-03-06 02:18 ==
LOC: ED 20:36
DX: R07.89 Other chest pain (principal); R11.0 Nausea; E03.9 Hypothyroidism, unspecified; J45.909 Unspecified asthma, uncomplicated; F41.0 Panic disorder [episodic paroxysmal anxiety]; Z88.8 Allergy status to other drugs, medicaments and biological substances; Z88.1 Allergy status to other antibiotic agents; Z88.6 Allergy status to analgesic agent; Z91.048 Other nonmedicinal substance allergy status; Z87.891 Personal history of nicotine dependence
CPT/HCPCS: 36415; 71020; 80053; 83605; 84484; 85025; 85379; 93005; 99282

== ENCOUNTER 2018-06-01 11:08 | Emergency (ER) | payer MEDICARE ==
[2018-06-01 12:18] VITALS: BP 158/78
--- NOTE | 2018-06-01 13:01 | UC ---
Throat Pain/Nasal Franki HPI - HPI Summary HPI Summary: In Room Note: The patient is a 67 y/o F presenting to [facility] with a chief complaint of a sore throat starting last night. She denies difficulty swallowing, but the pain is rated 4/10 in severity. She has been able to eat and drink as normal. She has not had any major throat infections. She occasionally has asthmatic and bronchitis flare ups. She notes that she has changed her diet and her ulcerative colitis and diverticulosis symptoms have diminished, although she was having mild abd cramping last night. Note: Vital signs stable: BP 158/87. Visit history: noncontributory to present complaint. Asthma and bronchitis. Nurse's Note: c/o sore throat for one day. Arrives with her dog stating, "it is a service dog ". - History of Current Complaint Chief Complaint: UCRespiratory Stated Complaint: SORE THROAT Time Seen by Provider: 06/01/18 12:54 Hx Obtained From: Patient Onset/Duration: Sudden Onset, Lasting Hours, Still Present Severity: Moderate Pain Intensity: 4 Pain Scale Used: 0-10 Numeric Cough: None Associated Signs & Symptoms: Positive: Other - mild diffuse abd cramping. Negative: Fever - Allergies/Home Medications Allergies/Adverse Reactions: Allergies Allergy/AdvReac Type Severity Reaction Status Date / Time Adhesive Tape Allergy Intermediate Rash Verified 06/01/18 12:24 amoxicillin Allergy Rash Verified 06/01/18 12:24 clopidogrel [From Plavix] Allergy See Comment Verified 06/01/18 12:24 nitrofurantoin Allergy Bleeding Verified 06/01/18 12:24 pregabalin [From Lyrica] Allergy Altered Verified 06/01/18 12:24 Mental Status Quinolones Allergy See Comment Verified 06/01/18 12:24 sucrose Allergy Unknown Verified 06/01/18 12:24 Reaction Details HFA Allergy Coughing Uncoded 06/01/18 12:24 beta blockers AdvReac Severe See Comment Uncoded 06/01/18 12:24 keytac AdvReac Intermediate Diarrhea Uncoded 06/01/18 12:24 PMH/Surg Hx/FS Hx/Imm Hx Endocrine History: Hyperthyroidism Cardiovascular History: Hypertension - borderline Respiratory History: Asthma GI/ History: Other Other GI/ History: Diverticulosis, Ulcerative Colitis, Bladder prolapse - Surgical History Surgical History: Yes Surgery Procedure, Year, and Place: Hysterectomy Oct 25; bladder biopsy, BLADDER MESH (PROLAPSE); tubal; sinus surgery; heart cath (no stents); - Family History Known Family History: Positive: Hypertension, Other - autoimmune conditions Family History: R & n/C - Social History Alcohol Use: None Substance Use Type: None Smoking Status (MU): Former Smoker - Immunization History Most Recent Influenza Vaccination: Fall 2013 Most Recent Tetanus Shot: Within last 10 years Most Recent Pneumonia Vaccination: None Review of Systems Constitutional: Negative Skin: Negative Eyes: Negative ENT: Sore Throat Respiratory: Negative Cardiovascular: Negative Gastrointestinal: Abdominal Pain - mild diffuse abd cramping Genitourinary: Negative Motor: Negative Neurovascular: Negative Musculoskeletal: Negative Neurological: Negative Psychological: Negative All Other Systems Reviewed And Are Negative: Yes - Comments Additional Review of Systems Comments: POSITIVE: sore throat, mild diffuse abd cramping; NEGATIVE: fever Physical Exam - Summary Physical Exam Summary: Appearance: The patient is well-appearing, is in no pain distress, and is well- nourished. Eyes: Conjunctiva are clear. ENT: The hearing is grossly normal, and the TMs are normal. Mild erythema of the pharynx. No exudate. There is no muffled or hoarse voice. Neck: The neck is supple and there is no lymphadenopathy. Respiratory: The chest is nontender. The lungs are clear, there are normal breath sounds with some mild extended expiratory breathing, and there is no respiratory distress. Cardiovascular: Heart is regular rate and rhythm. There is no murmur. Abdomen: The abdomen is soft and nontender. There is no organomegaly. Bowel sounds: present Musculoskeletal: Strength is intact. The patient moves all extremities. Neurological: The patient is alert. Motor and sensory examination grossly intact. Psychological: The patient displays age appropriate behavior Skin: Negative for rashes. Triage Information Reviewed: Yes Vital Signs: Initial Vital Signs Temp 98.8 F 06/01/18 12:16 Pulse 67 06/01/18 12:16 Resp 18 06/01/18 12:16 BP 158/78 06/01/18 12:16 Pulse Ox 100 06/01/18 12:16 Vital Signs Reviewed: Yes Throat Pain/Nasal Course/Dx - Course Course Of Treatment: Healthy 67 y/o F with history of mild sore throat. Rapid strep is negative. Differential pharyngitis is strep pharyngitis versus viral pharyngitis. My diagnosis is viral pharyngitis. Medications have been included in the original chart and reviewed. Hypertensive BP reading of 158/78. Patient will follow up with PCP. - Differential Dx/Diagnosis Differential Diagnosis/HQI/PQRI: Other - strep pharyngitis versus viral pharyngitis Provider Diagnoses: viral pharyngitis Discharge - Sign-Out/Discharge Documenting (check all that apply): Patient Departure - Patient will be discharged home. All imaging exams completed and their final reports reviewed: No Studies - Discharge Plan Condition: Stable Disposition: HOME Patient Education Materials: Pharyngitis (ED) Referrals: Dean Jasmine MD [Primary Care Provider] - 1 Week Additional Instructions: Your blood pressure reading today was 158/78, indicating HYPERTENSION. Follow- up with your primary care provider within 4 weeks for blood pressure readings and further evaluation. PLEASE SEEK CARE AT THE EMERGENCY DEPARTMENT IF SYMPTOMS WORSEN OR IF NEW SYMPTOMS DEVELOP. FOLLOW UP WITH YOUR PRIMARY CARE PHYSICIAN. WE DISCUSSED: Review have a sore throat caused by a virus. USEFUL HOME REMEDIES: WARM WATER GARGLES, WITH TSP OF SALT PER 8 OUNCES OF WATER, GARGLE FOR A FEW SECONDS AND SPIT OUT; GARGLE AND SPIT OUT; EVERY THREE HOURS. AND/OR: WARM WATER OR TEA, HONEY AND LEMON; 2-3 CUPS A DAY. FOR SORE THROAT: KEEP THROAT MOIST WITH LOZENGES; TEA AND HONEY. USE WARM WATER GARGLES 3-4 TIMES A DAY. Also: Acetaminophen (1000 mg) and Ibuprofen (400mg) taken at the same time can lesson most types of pain. FOLLOW UP: RE-CHECK IN 1O DAYS, NEEDED, IF YOU ARE NOT IMPROVING. RETURN HERE OR SEE YOUR PHYSICIAN - Billing Disposition and Condition Condition: STABLE Disposition: Home - Attestation Statements Document Initiated by Osito: Yes Documenting Scribe: Gricelda Ivan Provider For Whom Osito is Documenting (Include Credential): Dr. Jeff Jaquez MD Scribe Attestation: Gricelda Keys scribed for Dr. Jeff Jaquze MD on 06/01/18 at 1533. Scribe Documentation Reviewed: Yes Provider Attestation: The documentation as recorded by the Gricelda thomas accurately reflects the service I personally performed and the decisions made by , Dr. Jeff Jaquez MD
== END 2018-06-01 13:15 | disposition home or self-care (01) ==
LOC: UCEAST 11:08
DX: J02.9 Acute pharyngitis, unspecified (principal); R10.84 Generalized abdominal pain; I10 Essential (primary) hypertension; J45.909 Unspecified asthma, uncomplicated; Z88.0 Allergy status to penicillin; Z88.8 Allergy status to other drugs, medicaments and biological substances; Z91.048 Other nonmedicinal substance allergy status; Z87.891 Personal history of nicotine dependence
CPT/HCPCS: 87651; 99212; G0463

== ENCOUNTER 2018-06-02 21:15 | Emergency (ER) | payer MEDICARE ==
[2018-06-02 21:32] VITALS: BP 129/52
--- NOTE | 2018-06-02 21:40 | UC ---
Shortness of Breath HPI - HPI Summary HPI Summary: The patient is a 67 y/o F presenting to [facility] with a chief complaint of SOB starting today. She has been sick with a head cold and sore throat for the past few days, and today she noticed that she was panting while trying to take a nap. She hasn't felt like her cold has gone to her chest, and she has noticed the chest pain radiating to back . Her breathing is alleviated by sitting up and aggravated by lying down. There is also pain in her right back without trauma, and she has some nasal discharge that she relieved with Afrin nasal spray. She also complains of having a jittery sensation as if she has been taking a Prednisone steroid, but she has not taken anything. The pain is currently rated 3/10 in severity. - History of Current Complaint Chief Complaint: UCChestPain Stated Complaint: SOB Time Seen by Provider: 06/02/18 21:23 Hx Obtained From: Patient ?: No Onset/Duration: Sudden Onset, Lasting Hours - starting today, Still Present Timing: Constant Current Severity: Moderate Dyspnea At: Orthopena Aggrevating Factors: Other - lying down Alleviating Factors: Upright Position, Other - Afrin for rhinorrhea Associated Signs & Symptoms: Positive: Other - POSITIVE: pain in her right back without trauma, nasal discharge, jittery sensation; NEGATIVE: CP - Allergy/Home Medications Allergies/Adverse Reactions: Allergies Allergy/AdvReac Type Severity Reaction Status Date / Time Adhesive Tape Allergy Intermediate Rash Verified 06/02/18 22:38 amoxicillin Allergy Rash Verified 06/02/18 22:38 clopidogrel [From Plavix] Allergy See Comment Verified 06/02/18 22:38 nitrofurantoin Allergy Bleeding Verified 06/02/18 22:38 pregabalin [From Lyrica] Allergy Altered Verified 06/02/18 22:38 Mental Status Quinolones Allergy See Comment Verified 06/02/18 22:38 sucrose Allergy Unknown Verified 06/02/18 22:38 Reaction Details HFA Allergy Coughing Uncoded 06/02/18 22:38 beta blockers AdvReac Severe See Comment Uncoded 06/02/18 22:38 keytac AdvReac Intermediate Diarrhea Uncoded 06/02/18 22:38 PMH/Surg Hx/FS Hx/Imm Hx Previously Healthy: Yes Endocrine History: Hyperthyroidism Cardiovascular History: Hypertension - borderline, Other Other Cardiovascular History: Cardiomyopathy Other Respiratory History: negative GI/ History: Diverticulitis, Other Other GI/ History: Diverticulosis, bladder prolapse Other Neurological History: negative Other Psychological History: negative Other Cancer History: negative - Surgical History Surgical History: Yes Surgery Procedure, Year, and Place: Hysterectomy Oct 25; bladder biopsy, BLADDER MESH (PROLAPSE); tubal; sinus surgery; heart cath (no stents); - Family History Known Family History: Positive: Hypertension, Other - autoimmune conditions Negative: Cardiac Disease Family History: R & n/C - Social History Alcohol Use: None Substance Use Type: None Smoking Status (MU): Former Smoker - Immunization History Most Recent Influenza Vaccination: Fall 2013 Most Recent Tetanus Shot: Within last 10 years Most Recent Pneumonia Vaccination: None Review of Systems Constitutional: Other - jittery feeling Skin: Negative Eyes: Negative ENT: Nasal Discharge Respiratory: Shortness Of Breath Cardiovascular: Negative, Chest Pain - radiating to the back on right side., Other - NEGATIVE: chest pain Gastrointestinal: Negative Genitourinary: Negative Motor: Negative Neurovascular: Negative Musculoskeletal: Other: - pain in the right lower back Neurological: Negative Psychological: Negative Is Patient Immunocompromised?: No All Other Systems Reviewed And Are Negative: Yes Physical Exam - Summary Physical Exam Summary: Appearance: Well-Appearing, No Pain Distress, Well-Nourished Eyes: conjunctiva clear, no discharge ENT: Hearing grossly normal, no muffled/hoarse voice. Neck: Normal, Supple Respiratory/Lung Sounds: Lungs clear, Normal breath sounds, No respiratory distress, No accessory muscle use Cardiovascular: RRR, No murmur Abdomen: Nontender, Soft, no guarding, not distended Bowel Sounds: Present Musculoskeletal: Normal Neurological: Alert, muscle tone normal Psychiatric:Normal, age appropriate behavior Skin: Normal, Warm, Dry, Normal color Triage Information Reviewed: Yes Vital Signs: Initial Vital Signs Temp 98.3 F 06/02/18 21:29 Pulse 77 06/02/18 21:29 Resp 18 06/02/18 21:29 BP 129/52 06/02/18 21:29 Pulse Ox 97 06/02/18 21:29 Vital Signs Reviewed: Yes Diagnostics - EKG EKG Comments: NSR, QRS normal , 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 Cardiac Rate: NL Cardiac Rhythm: Sinus: Normal Ectopy: None ST Segment: Normal EKG Comparison: Other - COmparison from 2017- no significnat change. Minor changes. Shortness of Breath Dx - Course Course Of Treatment: During the visit today, we obtained EKG which shoed some changes when compared to last year. She does have SOB that worsens on laying down , unsure if she is haveing CHF but there were no crackles on auscuslation.. We discussed the findings and further plan. Her withh dire ther to ER to rule out any cardiac ischemia- NSTEMI. Patient expressed understanding . - Differential Dx/Diagnosis Provider Diagnoses: Shortness of breath. Chest pain Discharge - Sign-Out/Discharge Documenting (check all that apply): Patient Departure - Patient will be discharged with instruction to immediately go to ED. All imaging exams completed and their final reports reviewed: No Studies - Discharge Plan Condition: Stable Disposition: HOME-RECOMMEND TO ED Referrals: Dean Jasmine MD [Primary Care Provider] - 1 Week Additional Instructions: Given her continued symptoms, recommend going to the ER for workup. Her will drive her to ER Report was called to the ER - Billing Disposition and Condition Condition: STABLE Disposition: Home-Recommend to ED - Attestation Statements Document Initiated by Scribe: Yes Documenting Scribe: Gricelda Ivan Provider For Whom Ankite is Documenting (Include Credential): Dr. Joanna Leiva MD Scribe Attestation: Gricelda Keys scribed for Dr. Joanna Leiva MD on 06/03/18 at 0112. Scribe Documentation Reviewed: Yes Provider Attestation: The documentation as recorded by the Gricelda thomas accurately reflects the service I personally performed and the decisions made by me, Dr. Joanna Leiva MD
== END 2018-06-02 21:52 | disposition home health service (06) ==
LOC: UCEAST 21:15
DX: R06.02 Shortness of breath (principal); R07.89 Other chest pain; Z88.0 Allergy status to penicillin; Z88.8 Allergy status to other drugs, medicaments and biological substances; Z91.048 Other nonmedicinal substance allergy status; Z87.891 Personal history of nicotine dependence
CPT/HCPCS: 93005; 99212; G0463

== ENCOUNTER 2018-06-02 22:26 | Emergency (ER) | payer MEDICARE ==
[2018-06-02] MEDS ORDERED: Albuterol 2.5 MG/3 ML NEB.SOL* (0.083%) INH ONE (22:58)
--- NOTE | 2018-06-02 23:01 | ED ---
Shortness of Breath - HPI Summary HPI Summary: . This patient is a 67 year old F presenting to [facility] accompanied by her with a chief complaint of SOB that began a couple hours ago. Pt had a head cold for the last couple days and went to her doctor and dx viral illness, strep was done there. The patient rates the pain 2/10 in severity. Symptoms aggravated by lying. Patient reports fatigue, chills, dry cough, pain with inspiration, and reduced appetite. Patient denies fever, sleep disturbance, LE edema, CP, and vomiting. Pt states she did have ABD a couple days ago with some n/d. Pt has asthma and has been using her inhaler but states this doesnt feel like an asthma attack. Pt was seen at the [facility] and was sent for further work up due to EKG changes. - History of Current Complaint Chief Complaint: EDShortnessOfBreath Time Seen by Provider: 06/02/18 22:45 Hx Obtained From: Patient Onset/Duration: Lasting Hours, Still Present Timing: Constant Current Severity: Moderate Dyspnea At: Orthopena Associated Signs & Symptoms: Negative - , sleep disturbance, LE edema, ABD pain , CP, and vomiting., Cough (Nonproductive), Chills - Allergy/Home Medications Allergies/Adverse Reactions: Allergies Allergy/AdvReac Type Severity Reaction Status Date / Time Adhesive Tape Allergy Intermediate Rash Verified 06/02/18 22:38 amoxicillin Allergy Rash Verified 06/02/18 22:38 clopidogrel [From Plavix] Allergy See Comment Verified 06/02/18 22:38 nitrofurantoin Allergy Bleeding Verified 06/02/18 22:38 pregabalin [From Lyrica] Allergy Altered Verified 06/02/18 22:38 Mental Status Quinolones Allergy See Comment Verified 06/02/18 22:38 sucrose Allergy Unknown Verified 06/02/18 22:38 Reaction Details HFA Allergy Coughing Uncoded 06/02/18 22:38 beta blockers AdvReac Severe See Comment Uncoded 06/02/18 22:38 keytac AdvReac Intermediate Diarrhea Uncoded 06/02/18 22:38 PMH/Surg Hx/FS Hx/Imm Hx Endocrine/Hematology History: Reports: Hx Thyroid Disease - hyperthyroid Denies: Hx Diabetes Cardiovascular History: Reports: Hx Hypertension - BORDERLINE, Other Cardiovascular Problems/Disorders - hx viral cardiomyopathy 2004, cured Denies: Hx Congestive Heart Failure, Hx Pacemaker/ICD Respiratory History: Reports: Hx Asthma Denies: Hx Chronic Obstructive Pulmonary Disease (COPD), Other Respiratory Problems/Disorders GI History: Reports: Hx Diverticulosis - and diverticulitis Denies: Hx Ulcer History: Reports: Other Problems/Disorders - bladder prolapse Denies: Hx Dialysis, Hx Renal Disease Musculoskeletal History: Reports: Hx Arthritis Denies: Hx Rheumatoid Arthritis, Hx Osteoporosis Sensory History: Reports: Hx Contacts or Glasses Denies: Hx Hearing Aid Opthamlomology History: Reports: Hx Contacts or Glasses Neurological History: Reports: Other Neuro Impairments/Disorders - 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, menier's Psychiatric History: Reports: Hx Panic Disorder - Cancer History Hx Chemotherapy: No - Surgical History Surgery Procedure, Year, and Place: Hysterectomy Oct 25; bladder biopsy, BLADDER MESH (PROLAPSE); tubal; sinus surgery; heart cath (no stents); Infectious Disease History: No Infectious Disease History: Reports: Hx Hepatitis - Hep A, 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 Denies: Hx Human Immunodeficiency Virus (HIV), History Other Infectious Disease, Traveled Outside the [place] in Last 30 Days - Family History Known Family History: Positive: Hypertension, Other - autoimmune conditions Negative: Cardiac Disease - Social History Alcohol Use: None Hx Substance Use: No Substance Use Type: Reports: None Hx Tobacco Use: Yes Smoking Status (MU): Former Smoker Review of Systems Constitutional: Negative - sleep disturbance Positive: Chills, Fatigue, Other - reduced appetite . Negative: Fever Negative: Chest Pain Positive: Shortness Of Breath, Cough - pain with inspiration Positive: Abdominal Pain, Diarrhea, Nausea. Negative: Vomiting Negative: Edema All Other Systems Reviewed And Are Negative: Yes Physical Exam - Summary Physical Exam Summary: Appearance: Well-appearing, Well-nourished, lying in bed comfortably Skin: Warm, dry, no obvious rash Eyes: sclera anicteric, no conjunctival pallor ENT: mucous membranes moist, pharynx appears normal Neck: Supple, nontender Respiratory: Expiratory wheezes inspiratory crackles egophony in the right lower lung yeager with bronchiole breath sounds Cardiovascular: Normal S1, S2. No murmurs. Normal distal pulses in tibial and radial bilaterally. Abdomen: Soft, nontender, normal active bowel sounds present Musculoskeletal: Normal, Strength/ROM Intact Neurological: A&Ox3, awake and alert, mentation is normal, speech is fluent and appropriate Psychiatric: affect is normal, does not appear anxious or depressed Triage Information Reviewed: Yes Vital Signs On Initial Exam: Initial Vitals Temp Pulse Resp BP Pulse Ox 98.8 F 80 18 147/71 96 06/02/18 22:35 06/02/18 22:35 06/02/18 22:35 06/02/18 22:35 06/02/18 22:35 Vital Signs Reviewed: Yes Diagnostics - Vital Signs Vital Signs Temp Pulse Resp BP Pulse Ox 06/02/18 22:35 98.8 F 80 18 147/71 96 - Laboratory Result Diagrams: 06/02/18 23:05 06/02/18 23:05 Lab Statement: Any lab studies that have been ordered have been reviewed, and results considered in the medical decision making process. - Radiology CXR Radiology Interpretation Completed By: ED Physician - no acute cardiopulmonary disease. Pending official report - EKG 22:57 Cardiac Rate: NL EKG Rhythm: Sinus Rhythm - 70BPM, P waves, QRS complex, and T waves are within normal limits, T waves and intervals are normal, no ischemic changes. This is a normal EKG Re-Evaluation - Re-Evaluation First Eval Re-Evaluation Time: 01:05 Change: Unchanged Comment: I discussed test results and discharge with the patient. Course/Dx - Course Assessment/Plan: This patient is a 67 year old F presenting to [facility] accompanied by her with a chief complaint of SOB that began a couple hours ago. Pt had a head cold for the last couple days and went to her doctor and dx viral illness, strep was done there. The patient rates the pain 2/10 in severity. Symptoms aggravated by lying. Patient reports fatigue, chills, dry cough, pain with inspiration, and reduced appetite. Patient denies fever, sleep disturbance, LE edema, CP, and vomiting. Pt states she did have ABD a couple days ago with some n/d. Pt has asthma and has been using her inhaler but states this doesnt feel like an asthma attack. Pt was seen at the [facility] and was sent for further work up due to EKG changes. An EKG reveals at 70BPM, P waves, QRS complex, and T waves are within normal limits, T waves and intervals are normal , no ischemic changes. This is a normal EKG. CXR reveals, no acute cardiopulmonary disease. Pending official report. Bloodwork obtained. In the ED course the patient was given albuterol. Patient will be discharged with prescription for a z pack and follow up from PCP. The patient is agreeable with this plan. - Diagnoses Provider Diagnoses: Bacterial pneumonia Discharge - Sign-Out/Discharge Documenting (check all that apply): Patient Departure - Discharge Plan Condition: Good Disposition: HOME Prescriptions: Azithromycin TAB* [Zithromax TAB (Z-DONIS) 250 mg #6 tabs] 250 mg PO DAILY #4 tab Patient Education Materials: Bacterial Pneumonia (ED), Bronchospasm (ED) Referrals: Dean Jasmine MD [Primary Care Provider] - - Attestation Statements Document Initiated by Scribe: Yes Documenting Scribe: Juan Joseph Provider For Whom Scribe is Documenting (Include Credential): Bennett Armenta MD Scribe Attestation: Juan Keys , scribed for Bennett Armenta MD on 06/03/18 at 0104.
[2018-06-02 23:16] LABS: ABS Basophils 0.1 10^3/ul (0-0.2); ABS Eosinophils 0.6 10^3/ul (0-0.6); ABS Lymphocytes 1.8 10^3/ul (1.0-4.8); ABS Monocytes 0.7 10^3/ul (0-0.8); ABS Neutrophils 6.4 10^3/ul (1.5-7.7); ABS Nucleated RBC 0 10^3/ul; Eosinophil % 6.7 % (0-6); Hematocrit 42 % (35-47); Hemoglobin 14.2 g/dl (12.0-16.0); Lymphocyte % 18.5 % (25-47); Mean Corpuscular HGB Conc 34 g/dl (31-36); Mean Corpuscular Hemoglobin 31 pg (27-31); Mean Corpuscular Volume 90 fL (80-97); Mean Platelet Volume 7.8 um3 (7.4-10.4); Nucleated Red Blood Cells % 0.1; Platelet Count 296 10^3/ul (150-450); Red Blood Count 4.65 10^6/ul (4.00-5.40); Red Cell Distribution Width 13 % (10.5-15); White Blood Count 9.6 10^3/ul (3.5-10.8)
[2018-06-02 23:34] LABS: EGFR Non-African American 79.5 (>60)
[2018-06-03 01:03] VITALS: BP 129/53
[2018-06-03] MEDS ORDERED: Azithromycin TAB* 250 MG PO ONE (01:12)
--- NOTE | 2018-06-03 07:57 | RAD ---
INDICATION: Shortness of breath. History of viral cardiomyopathy. History of tobacco use. COMPARISON: March 05, 2017 TECHNIQUE: Dual energy PA and routine lateral views of the chest were obtained. REPORT: Elevated lung volumes and patchy rarefaction of the mid to upper lung zone interstitial markings. Minimal linear subsegmental atelectasis at the LEFT lung base. The lungs and pleural spaces are otherwise clear. Negative for pneumothorax. The heart, pulmonary vasculature, and mediastinal contours are unremarkable. Mild thoracic degenerative spondylosis. IMPRESSION: #. Stigmata of obstructive lung disease. #. Minimal LEFT basilar atelectasis. R0
== END 2018-06-03 01:20 | disposition home or self-care (01) ==
LOC: ED 22:26
DX: J15.9 Unspecified bacterial pneumonia (principal); R06.02 Shortness of breath; R05 Cough; R53.83 Other fatigue; Z87.891 Personal history of nicotine dependence; R19.7 Diarrhea, unspecified; R11.0 Nausea; R07.89 Other chest pain; Z88.0 Allergy status to penicillin; Z88.8 Allergy status to other drugs, medicaments and biological substances; Z91.048 Other nonmedicinal substance allergy status
CPT/HCPCS: 36415; 71046; 80053; 83605; 83880; 84484; 85025; 86140; 93005; 99283; A9270-GY

== ENCOUNTER 2018-08-28 11:13 | Emergency (ER) | payer MEDICARE ==
[2018-08-28] MEDS ORDERED: Aspirin 81 mg CHEW TAB* 81 MG TAB.CHEW PO ONE (11:37)
--- NOTE | 2018-08-28 11:50 | ED ---
HPI Chest Pain - HPI Summary HPI Summary: A 67 y/o female presents to [facility] with a chief complaint of mid-sternal chest pressure since 08/25/18. She claims this pressure is intermittent and not radiating. She states that the pressure is not really a pain, rating her pain as a 1/10. She admits to having a mild GAUTHIER and SOB with exertion. She states that exertion worsens her pain. She denies dizziness, syncope, diaphoresis and nausea. She has a Hx of cardiomyopathy in 2004 which she recivered from. She also has a Hx of CVA in 2014. He claims that she takes one baby aspirin daily. She is a former smoker but denies recent EtOH use. The morning of 08/28/18 she called her PCP who referred her to the ED. - History of Current Complaint Chief Complaint: EDChestWallPain Time Seen by Provider: 08/28/18 11:23 Hx Obtained From: Patient Onset/Duration: Started Days Ago, Still Present Timing: Intermittent Initial Severity: Mild Current Severity: Mild Pain Intensity: 1 Pain Scale Used: 0-10 Numeric Chest Pain Location: Mid Sternal Chest Pain Radiates: No Character: Pressure/Squeezing Aggravating Factor(s): Exertion Alleviating Factor(s): Nothing Associated Signs and Symptoms: Positive: Headaches, Shortness of Breath. Negative: Dizziness, Syncope, Diaphoresis, Nausea - Additional Pertinent History Primary Care Physician: [id number] - Allergy/Home Medications Allergies/Adverse Reactions: Allergies Allergy/AdvReac Type Severity Reaction Status Date / Time Adhesive Tape Allergy Intermediate Rash Verified 06/02/18 22:38 amoxicillin Allergy Rash Verified 06/02/18 22:38 clopidogrel [From Plavix] Allergy See Comment Verified 06/02/18 22:38 nitrofurantoin Allergy Bleeding Verified 06/02/18 22:38 pregabalin [From Lyrica] Allergy Altered Verified 06/02/18 22:38 Mental Status Quinolones Allergy See Comment Verified 06/02/18 22:38 sucrose Allergy Unknown Verified 06/02/18 22:38 Reaction Details HFA Allergy Coughing Uncoded 06/02/18 22:38 beta blockers AdvReac Severe See Comment Uncoded 06/02/18 22:38 keytac AdvReac Intermediate Diarrhea Uncoded 06/02/18 22:38 Home Medications: Home Medications Cefdinir cap (NF) [Cefdinir 300 MG cap (NF)] 300 mg PO BID 08/28/18 [History Confirmed 08/28/18] PMH/Surg Hx/FS Hx/Imm Hx Endocrine/Hematology History: Reports: Hx Thyroid Disease - hyperthyroid Denies: Hx Diabetes Cardiovascular History: Reports: Hx Hypertension - BORDERLINE, Other Cardiovascular Problems/Disorders - hx viral cardiomyopathy 2003, cured Denies: Hx Congestive Heart Failure, Hx Pacemaker/ICD Respiratory History: Reports: Hx Asthma Denies: Hx Chronic Obstructive Pulmonary Disease (COPD), Other Respiratory Problems/Disorders GI History: Reports: Hx Diverticulosis - and diverticulitis Denies: Hx Ulcer History: Reports: Other Problems/Disorders - bladder prolapse Denies: Hx Dialysis, Hx Renal Disease Musculoskeletal History: Reports: Hx Arthritis Denies: Hx Rheumatoid Arthritis, Hx Osteoporosis Sensory History: Reports: Hx Contacts or Glasses Denies: Hx Hearing Aid Opthamlomology History: Reports: Hx Contacts or Glasses Neurological History: Reports: Hx CVA, Other Neuro Impairments/Disorders - 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, menier's Psychiatric History: Reports: Hx Panic Disorder - Cancer History Hx Chemotherapy: No - Surgical History Surgery Procedure, Year, and Place: Hysterectomy Oct 25; bladder biopsy, BLADDER MESH (PROLAPSE); tubal; sinus surgery; heart cath (no stents); Infectious Disease History: No Infectious Disease History: Reports: Hx Hepatitis - Hep A, 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 Negative: Syncope All Other Systems Reviewed And Are Negative: Yes Physical Exam - Summary Physical Exam Summary: VITAL SIGNS: Reviewed. GENERAL: Patient is a well-developed and nourished FEMALE who is lying comfortable in the stretcher. Patient is not in any acute respiratory distress. HEAD AND FACE: No signs of trauma. No ecchymosis, hematomas or skull depressions. No sinus tenderness. EYES: PERRLA, EOMI x 2, No injected conjunctiva, no nystagmus. EARS: Hearing grossly intact. Ear canals and tympanic membranes are within normal limits. MOUTH: Oropharynx within normal limits. NECK: Supple, trachea is midline, no adenopathy, no JVD, no carotid bruit, no c- spine tenderness, neck with full ROM. CHEST: Symmetric, no tenderness at palpation LUNGS: Clear to auscultation bilaterally. No wheezing or crackles. CVS: Regular rate and rhythm, S1 and S2 present, no murmurs or gallops appreciated. ABDOMEN: Soft, non-tender. No signs of distention. No rebound no guarding, and no masses palpated. Bowel sounds are normal. EXTREMITIES: FROM in all major joints, no edema, no cyanosis or clubbing. NEURO: Alert and oriented x 3. No acute neurological deficits. Speech is normal and follows commands. SKIN: Dry and warm Triage Information Reviewed: Yes Vital Signs On Initial Exam: Initial Vitals Temp Pulse Resp BP Pulse Ox 97.4 F 66 18 146/68 96 08/28/18 11:19 08/28/18 11:19 08/28/18 11:19 08/28/18 11:19 08/28/18 11:19 Vital Signs Reviewed: Yes Diagnostics - Vital Signs Vital Signs Temp Pulse Resp BP Pulse Ox 08/28/18 11:19 97.4 F 66 18 146/68 96 - Laboratory Result Diagrams: 08/28/18 12:16 08/28/18 12:16 Lab Statement: Any lab studies that have been ordered have been reviewed, and results considered in the medical decision making process. - Radiology CXR Radiology Interpretation Completed By: Radiologist Summary of Radiographic Findings: No evidence for acute disease. ED physician has reviewed this imaging report. - CT Chest/thorax CTA CT Interpretation Completed By: Radiologist Summary of CT Findings: NO PULMONARY ARTERIAL FILLING DEFECT TO SUGGEST PULMONARY EMBOLISM. ED physician has reviewed this imaging report. - EKG 11:55 Cardiac Rate: NL - 61 bpm EKG Rhythm: Sinus Rhythm Summary of EKG Findings: no ST elevations. Similar to EKG done 06/02/18. Re-Evaluation - Re-Evaluation First Eval Re-Evaluation Time: 14:55 Change: Improved Comment: Patient is ready for discharge. Chest Pain Course/Dx - Course Assessment/Plan: A 67 y/o female presents to [facility] with a chief complaint of mid -sternal chest pressure since 08/25/18. She claims this pressure is intermittent and not radiating. She states that the pressure is not really a pain, rating her pain as a 1/10. She admits to having a mild GAUTHIER and SOB with exertion. She states that exertion worsens her pain. She denies dizziness, syncope, diaphoresis and nausea. She has a Hx of cardiomyopathy in 2004 which she recovered from. She also has a Hx of CVA in 2014. He claims that she takes one baby aspirin daily. She is a former smoker but denies recent EtOH use. The morning of 08/28/18 she called her PCP who referred her to the ED. Blood work without any significant abnormality except for d-dimer at 338, potassium at 3.4 and troponin of 0.00. urinalysis is negative for UTI. EKG is a normal sinus rhythm without any ST elevations. Chest x-ray impression: no acute disease. Because the patient is having and increase d-dimer I decided to do a chest CT to rule out a PE. Chest CTA impression: Negative for a PE. Second troponin is also 0.00. + At this point the patient is feeling better and therefore, the patient was discharged home with follow-up PCP. I discussed all the findings and test results with the patient. Patient was instructed to return to the emergency room immediately if any of the symptoms return or worsens. Plan of care was discussed with the patient and understands and agrees. All questions were answered at patient satisfaction. There were no further complaints or concerns. Lung exam before discharge: CTA B/L. Good air exchange. No wheezing or crackles heard. CVS: S1 and S2 present. No murmurs appreciated. Patient is alert and oriented x 3. Patient is hemodynamically stable. Patient will be discharged home with follow up PCP in the next 2-3 days - Chest Pain Differential Diagnosis/HQI/PQRI: Acute ID, ACS, Angina, CHF, Chest Wall, GI Disease, Lower Respiratory Infection, Pulmonary Edema, Pulmonary Embolism - Diagnoses Provider Diagnoses: Atypical chest pain Discharge - Sign-Out/Discharge Documenting (check all that apply): Patient Departure - DC - Discharge Plan Condition: Stable Disposition: HOME Referrals: Dean Jasmine MD [Primary Care Provider] - 3 Days () Additional Instructions: Return to the ED for any new or worsening symptoms. - Billing Disposition and Condition Condition: STABLE Disposition: Home - Attestation Statements Document Initiated by Scribe: Yes Documenting Scribe: Jatinder Herrera Provider For Whom Myraibmelanie is Documenting (Include Credential): Michael Ley MD Scribe Attestation: IJatinder, scribed for Michael Ley MD on 08/29/18 at 1030. Scribe Documentation Reviewed: Yes Provider Attestation: The documentation as recorded by the Jatinder thomas accurately reflects the service I personally performed and the decisions made by me, Michael Ley MD Status of Scribe Document: Viewed Attestations User Type: Provider with Scribe Provider Attestation: The documentation recorded by the scribe accurately reflects the service I personally performed and the decisions made by me.
[2018-08-28 12:27] LABS: ABS Basophils 0.1 10^3/ul (0-0.2); ABS Eosinophils 0.9 10^3/ul (0-0.6); ABS Lymphocytes 1.7 10^3/ul (1.0-4.8); ABS Monocytes 0.5 10^3/ul (0-0.8); ABS Neutrophils 3.8 10^3/ul (1.5-7.7); ABS Nucleated RBC 0 10^3/ul; Eosinophil % 12.9 %; Hematocrit 41 % (35-47); Mean Corpuscular HGB Conc 34 g/dl (31-36); Mean Corpuscular Hemoglobin 31 pg (27-31); Mean Corpuscular Volume 91 fL (80-97); Mean Platelet Volume 8.3 fL (7.4-10.4); Nucleated Red Blood Cells % 0; Platelet Count 317 10^3/ul (150-450); Red Blood Count 4.56 10^6/ul (4.00-5.40); Red Cell Distribution Width 13 % (10.5-15)
[2018-08-28 12:59] LABS: EGFR Non-African American 75.9 (>60)
[2018-08-28] MEDS ORDERED: Iohexol 350* (CONTRAST) 500 ML MDV IV ONE (13:15)
[2018-08-28 13:23] LABS: Urine Appearance Cloudy; Urine Blood Negative (Negative); Urine Color Yellow; Urine Ketones Negative (Negative); Urine Protein Negative (Negative); Urine Specific Gravity 1.013 (1.010-1.030); Urine Urobilinogen Negative (Negative)
[2018-08-28 15:05] VITALS: BP 140/73
== END 2018-08-28 15:05 | disposition home or self-care (01) ==
LOC: ED 11:13
DX: R07.89 Other chest pain (principal); R06.02 Shortness of breath; R51 Headache; Z88.0 Allergy status to penicillin; Z88.8 Allergy status to other drugs, medicaments and biological substances; Z91.048 Other nonmedicinal substance allergy status; Z87.891 Personal history of nicotine dependence
CPT/HCPCS: 36415; 71045; 71275; 80053; 81003; 83605; 83880; 84484; 85025; 85379; 86140; 93005; 99283; A9270-GY; Q9967

== ENCOUNTER 2019-04-04 12:54 | Emergency (ER) | payer MEDICARE ==
[2019-04-04 13:09] VITALS: BP 149/57
[2019-04-04] MEDS ORDERED: Aspirin 81 mg CHEW TAB* 81 MG TAB.CHEW PO ONE (13:27)
--- NOTE | 2019-04-04 13:33 | UC ---
Shortness of Breath HPI - HPI Summary HPI Summary: 68 yo female with 2 day hx of exertion dyspnea associated with mild chest pressure gets wind going up a flight of stairs no n/v no diaphoresis has felt fatigues hx cardiomyopathy no hx CAD - History of Current Complaint Chief Complaint: UCChestPain Stated Complaint: CHEST PAIN Time Seen by Provider: 04/04/19 13:09 Hx Obtained From: Patient Onset/Duration: Sudden Onset, Lasting Hours - <15 miutes Current Severity: None Dyspnea At: Exertion Aggravating Factors: Other - stairs/house work Alleviating Factors: Spontaneous Resolution - spontaneous resolution Associated Signs & Symptoms: Positive: Other - chest pressure when dyspneic - Allergy/Home Medications Allergies/Adverse Reactions: Allergies Allergy/AdvReac Type Severity Reaction Status Date / Time Adhesive Tape Allergy Intermediate Rash Verified 04/04/19 13:09 amoxicillin Allergy Rash Verified 04/04/19 13:09 clopidogrel [From Plavix] Allergy See Comment Verified 04/04/19 13:09 nitrofurantoin Allergy Bleeding Verified 04/04/19 13:09 pregabalin [From Lyrica] Allergy Altered Verified 04/04/19 13:09 Mental Status Quinolones Allergy See Comment Verified 04/04/19 13:09 sucrose Allergy Unknown Verified 04/04/19 13:09 Reaction Details HFA Allergy Coughing Uncoded 04/04/19 13:09 beta blockers AdvReac Severe See Comment Uncoded 04/04/19 13:09 keytac AdvReac Intermediate Diarrhea Uncoded 04/04/19 13:09 PMH/Surg Hx/FS Hx/Imm Hx Previously Healthy: Yes Cardiovascular History: Hypertension Other Cardiovascular History: cardiomyopathy yrs ago Respiratory History: Asthma Neurological History: CVA - Surgical History Surgical History: Yes Surgery Procedure, Year, and Place: Hysterectomy Oct 25; bladder biopsy, BLADDER MESH (PROLAPSE); tubal; sinus surgery; heart cath (no stents); - Family History Known Family History: Positive: Hypertension, Other - autoimmune conditions Negative: Cardiac Disease - Social History Alcohol Use: None Substance Use Type: None Smoking Status (MU): Former Smoker - Immunization History Most Recent Influenza Vaccination: Fall 2013 Most Recent Tetanus Shot: Within last 10 years Most Recent Pneumonia Vaccination: None Review of Systems All Other Systems Reviewed And Are Negative: Yes Constitutional: Positive: Negative Skin: Positive: Negative Eyes: Positive: Negative ENT: Positive: Negative Respiratory: Positive: Shortness Of Breath - with exertion Cardiovascular: Positive: Chest Pain - pressure when dysneic Gastrointestinal: Positive: Negative Genitourinary: Positive: Negative Motor: Positive: Negative Neurovascular: Positive: Negative Musculoskeletal: Positive: Negative Neurological: Positive: Negative Psychological: Positive: Negative Physical Exam Triage Information Reviewed: Yes Appearance: Well-Appearing, No Pain Distress, Well-Nourished Vital Signs: Initial Vital Signs Temp 97.9 F 04/04/19 13:06 Pulse 80 04/04/19 13:06 Resp 18 04/04/19 13:06 BP 149/57 04/04/19 13:06 Pulse Ox 97 04/04/19 13:06 Vital Signs Reviewed: Yes Eyes: Positive: Conjunctiva Clear ENT: Positive: Hearing grossly normal. Negative: Nasal congestion, Nasal drainage, Trismus, Muffled voice, Hoarse voice Neck: Positive: Supple, Nontender Respiratory: Positive: No respiratory distress, No accessory muscle use, Wheezing - scatterred Cardiovascular: Positive: RRR. Negative: Tachycardia, Bradycardia Abdomen Description: Positive: Nontender, No Organomegaly, Soft Musculoskeletal: Positive: ROM Intact, No Edema Neurological: Positive: Alert Psychological Exam: Normal Diagnostics - EKG Cardiac Rate: NL Cardiac Rhythm: Sinus: Normal Ectopy: None ST Segment: Normal EKG Comparison: No Significant Change - LAD and LAHB Shortness of Breath Dx - Course Course Of Treatment: I informed patient that her symptoms may be due to angina and suggest further evaluation she is currently asymptomatic and wishes to let her drive her - Differential Dx/Diagnosis Provider Diagnosis: Dyspnea on exertion Discharge - Sign-Out/Discharge Documenting (check all that apply): Patient Departure All imaging exams completed and their final reports reviewed: No Studies - Discharge Plan Condition: Stable Disposition: HOME Referrals: Tomasa Allen MD [Primary Care Provider] - Additional Instructions: I suggest you go directly to the ER for evaluation of your shortness of breath with exertion and chest pressure - Billing Disposition and Condition Condition: STABLE Disposition: Home
== END 2019-04-04 13:40 | disposition home or self-care (01) ==
LOC: UCEAST 12:54
DX: R06.00 Dyspnea, unspecified (principal); I10 Essential (primary) hypertension; J45.909 Unspecified asthma, uncomplicated; Z86.73 Personal history of transient ischemic attack (TIA), and cerebral infarction without residual deficits; Z87.891 Personal history of nicotine dependence
CPT/HCPCS: 99212; A9270-GY; G0463

== ENCOUNTER → 2019-04-04 14:08 | Emergency (ER) | payer MEDICARE ==
[2019-04-04 15:15] VITALS: BP 151/80
== END | disposition left against medical advice (07) ==
LOC: ED 14:08
DX: R00.0 Tachycardia, unspecified (principal); Z53.21 Procedure and treatment not carried out due to patient leaving prior to being seen by health care provider
CPT/HCPCS: 99281

== ENCOUNTER 2019-11-16 10:54 | Emergency (ER) | payer MEDICARE ==
[2019-11-16 12:30] LABS: ABS Lymphocytes 0.3 10^3/ul (1.0-4.8); ABS Monocytes 0.6 10^3/ul (0-0.8); ABS Neutrophils 7.9 10^3/ul (1.5-7.7); Eosinophil % 0.4 %; Hematocrit 40 % (35-47); Hemoglobin 13.6 g/dL (12.0-16.0); Lymphocyte % 2.9 %; Mean Corpuscular HGB Conc 34 g/dL (31-36); Mean Corpuscular Hemoglobin 31 pg (27-31); Mean Corpuscular Volume 90 fL (80-97); Nucleated Red Blood Cells % 0.1; Platelet Count 277 10^3/uL (150-450); Red Cell Distribution Width 14 % (10-15); White Blood Count 8.8 10^3/uL (3.5-10.8)
--- NOTE | 2019-11-16 12:44 | ED ---
HPI Febrile Illness - HPI Summary HPI Summary: This patient is a 69 year old female presenting to [facility] with a chief complaint of febrile illness since last night. She reports dizziness, cough last night, fatigue, sore throat, nausea, and vomiting. She has a Hx of CVA. She states her fever was 101.5 F. She states she has not been to [place]. - History of Current Complaint Chief Complaint: EDGeneral Time Seen by Provider: 11/16/19 12:20 Hx Obtained From: Patient Timing: Lasting Days Pain Intensity: 0 Pain Scale Used: 0-10 Numeric Associated Signs and Symptoms: Cough - Additional Pertinent History Primary Care Physician: [id number] - Allergy/Home Medications Allergies/Adverse Reactions: Allergies Allergy/AdvReac Type Severity Reaction Status Date / Time Adhesive Tape Allergy Intermediate Rash Verified 11/16/19 11:09 amoxicillin Allergy Rash Verified 11/16/19 11:09 clopidogrel [From Plavix] Allergy See Comment Verified 11/16/19 11:09 nitrofurantoin Allergy Bleeding Verified 11/16/19 11:09 pregabalin [From Lyrica] Allergy Altered Verified 11/16/19 11:09 Mental Status Quinolones Allergy See Comment Verified 11/16/19 11:09 sucrose Allergy Unknown Verified 11/16/19 11:09 Reaction Details HFA Allergy Coughing Uncoded 11/16/19 11:09 beta blockers AdvReac Severe See Comment Uncoded 11/16/19 11:09 keytac AdvReac Intermediate Diarrhea Uncoded 11/16/19 11:09 Home Medications: Home Medications Montelukast Sodium TAB* [Singulair 10 MG TAB*] 10 mg PO BEDTIME 11/01/13 [ History Confirmed 08/28/18] Budesonide Flexhaler 180 (NF) [Pulmicort Flexhaler 180 mcg/act (NF)] 2 puff INH BID 03/30/15 [History Confirmed 08/28/18] Cholecalciferol TAB* [Vitamin D TAB*] 1,000 unit PO DAILY 03/30/15 [History Confirmed 08/28/18] Fluticasone NASAL SPRAY 50MCG* [Flonase NASAL SPRAY 50MCG*] 1 spray BOTH NARES BID 03/30/15 [History Confirmed 08/28/18] HYDROcodone/ACETAMIN 5-325 MG* [Woodruff 5-325 TAB*] 1 tab PO BEDTIME 03/30/15 [ History Confirmed 08/28/18] Aspirin EC TAB* [Ecotrin EC Low Dose 81 MG*] 81 mg PO DAILY 02/15/16 [History Confirmed 08/28/18] Triamterene/HCTZ 37.5-25 MG* [Dyazide CAP*] 1 cap PO DAILY 02/15/16 [History Confirmed 08/28/18] Oseltamivir CAP* [Tamiflu CAP*] 75 mg PO BID #10 cap 11/16/19 [Rx] PMH/Surg Hx/FS Hx/Imm Hx Endocrine/Hematology History: Reports: Hx Thyroid Disease - hyperthyroid Denies: Hx Diabetes Cardiovascular History: Reports: Hx Hypertension - BORDERLINE, Other Cardiovascular Problems/Disorders - hx viral cardiomyopathy 2003, cured Denies: Hx Congestive Heart Failure, Hx Pacemaker/ICD Respiratory History: Reports: Hx Asthma Denies: Hx Chronic Obstructive Pulmonary Disease (COPD), Other Respiratory Problems/Disorders GI History: Reports: Hx Diverticulosis - and diverticulitis Denies: Hx Ulcer History: Reports: Other Problems/Disorders - bladder prolapse Denies: Hx Dialysis, Hx Renal Disease Musculoskeletal History: Reports: Hx Arthritis Denies: Hx Rheumatoid Arthritis, Hx Osteoporosis Sensory History: Reports: Hx Contacts or Glasses Denies: Hx Hearing Aid Opthamlomology History: Reports: Hx Contacts or Glasses Neurological History: Reports: Hx CVA, Other Neuro Impairments/Disorders - 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, menier's Psychiatric History: Reports: Hx Panic Disorder - Cancer History Hx Chemotherapy: No - Surgical History Surgery Procedure, Year, and Place: sinus surgery Infectious Disease History: No Infectious Disease History: Reports: Hx Hepatitis - Hep A, 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 Denies: Hx Human Immunodeficiency Virus (HIV), History Other Infectious Disease, Traveled Outside the [place] in Last 30 Days - Family History Known Family History: Positive: Hypertension, Other - autoimmune conditions Negative: Cardiac Disease - Social History Alcohol Use: None Hx Substance Use: No Substance Use Type: Reports: None Hx Tobacco Use: Yes Smoking Status (MU): Former Smoker Review of Systems Positive: Fever, Fatigue Positive: Sore Throat Positive: Cough Positive: Vomiting, Nausea Neurological/Mental Status: Other - Dizziness All Other Systems Reviewed And Are Negative: Yes Physical Exam - Summary Physical Exam Summary: VITAL SIGNS: Reviewed. GENERAL: Patient is a well-developed and nourished FEMALE who is lying comfortable in the stretcher. Patient is not in any acute respiratory distress. HEAD AND FACE: No signs of trauma. No ecchymosis, hematomas or skull depressions. No sinus tenderness. EYES: PERRLA, EOMI x 2, No injected conjunctiva, no nystagmus. EARS: Hearing grossly intact. Ear canals and tympanic membranes are within normal limits. MOUTH: Oropharynx within normal limits. NECK: Supple, trachea is midline, no adenopathy, no JVD, no carotid bruit, no c- spine tenderness, neck with full ROM. CHEST: Symmetric, no tenderness at palpation. LUNGS: Clear to auscultation bilaterally. No wheezing or crackles. CVS: Regular rate and rhythm, S1 and S2 present, no murmurs or gallops appreciated. ABDOMEN: Soft, non-tender. No signs of distention. No rebound, no guarding, and no masses palpated. Bowel sounds are normal. EXTREMITIES: FROM in all major joints, no edema, no cyanosis or clubbing. NEURO: Alert and oriented x 3. No acute neurological deficits. Speech is normal and follows commands. SKIN: Dry and warm. Triage Information Reviewed: Yes Vital Signs On Initial Exam: Initial Vitals Temp Pulse Resp BP Pulse Ox 99.5 F 104 20 149/78 93 11/16/19 11:04 11/16/19 11:04 11/16/19 11:04 11/16/19 11:04 11/16/19 11:04 Vital Signs Reviewed: Yes Procedures - Sedation Patient Received Moderate/Deep Sedation with Procedure: No Diagnostics - Vital Signs Vital Signs Temp Pulse Resp BP Pulse Ox 11/16/19 11:04 99.5 F 104 20 149/78 93 - Laboratory Lab Results: Lab Results 11/16/19 Range/Units 12:19 WBC 8.8 (3.5-10.8) 10^3/uL RBC 4.40 (3.70-4.87) 10^6 /uL Hgb 13.6 (12.0-16.0) g/dL Hct 40 (35-47) % MCV 90 (80-97) fL MCH 31 (27-31) pg MCHC 34 (31-36) g/dL RDW 14 (10-15) % Plt Count 277 (150-450) 10^3/uL MPV 8.0 (7.4-10.4) fL Neut % (Auto) 89.0 % Lymph % (Auto) 2.9 % [place]aine % (Auto) 7.2 % Eos % (Auto) 0.4 % Baso % (Auto) 0.5 % Absolute Neuts (auto) 7.9 H (1.5-7.7) 10^3/ul Absolute Lymphs (auto) 0.3 L (1.0-4.8) 10^3/ul Absolute Monos (auto) 0.6 (0-0.8) 10^3/ul Absolute Eos (auto) 0.0 (0-0.6) 10^3/ul Absolute Basos (auto) 0.0 (0-0.2) 10^3/ul Absolute Nucleated RBC 0.0 10^3/ul Nucleated RBC % 0.1 Result Diagrams: 11/16/19 12:19 11/16/19 12:19 Lab Statement: Any lab studies that have been ordered have been reviewed, and results considered in the medical decision making process. - Radiology CXR Radiology Interpretation Completed By: Radiologist Summary of Radiographic Findings: Stale puncate densities in the lungs could be small calcified granulomas in the otherwise nonacute chest x-ray. ED Provider has reviewed this report. Course/Dx - Course Assessment/Plan: This patient is a 69 year old female presenting to [facility] with a chief complaint of febrile illness since last night. She reports dizziness, cough last night, fatigue, sore throat, nausea, and vomiting. She has a Hx of CVA. She states her fever was 101.5 F. In the ED course the patient was placed in a supervisor international reservations, IV access was obtained, IV fluids started. Blood test w/ o a significant abnormality except for absolute neutrophils of 7.9, potassium of 3, crying 99, glucose 125, magnesium 1.7, CRP of 8.16. Urinalysis is contaminated. Influenza A is positive, influenza B is negative. Since the patients symptoms started only 24 hours ago the patient was given Tamiflu. Patient was given IV fluids. I discussed all the findings and test results with the patient. Patient was instructed to return to the emergency room immediately if any of the symptoms return worsens. Plan of care was discussed with the patient and understands and agrees. All questions were answered at patient satisfaction. There were no further complaints or concerns. Lung exam before discharge: CTA B/L. Good air exchange. No wheezing or crackles heard. CVS : S1 and S2 present. No murmurs appreciated. Patient is alert and oriented x 3. Patient is hemodynamically stable. Patient will be discharged home with follow up PCP in the next 2-3 days - Febrile Illness Differential Diagnoses: Pneumonia, Other: - URI, Influenza, bronchitis - Diagnoses Provider Diagnoses: Influenza A Discharge ED - Sign-Out/Discharge Documenting (check all that apply): Patient Departure - Discharge - Discharge Plan Condition: Stable Disposition: HOME Prescriptions: Oseltamivir CAP* [Tamiflu CAP*] 75 mg PO BID #10 cap Patient Education Materials: Influenza (ED) Referrals: Tomasa Allen MD [Primary Care Provider] - 3 Days Additional Instructions: Return to ED with new or worsening symptoms. - Billing Disposition and Condition Condition: STABLE Disposition: Home - Attestation Statements Document Initiated by Scribe: Yes Documenting Scribe: Mario Wick Provider For Whom Scribe is Documenting (Include Credential): Michael Ley MD Scribe Attestation: Mario Keys scribed for Michael Ley MD on 11/16/19 at 2103. Scribe Documentation Reviewed: Yes Provider Attestation: The documentation as recorded by the Mario thomas accurately reflects the service I personally performed and the decisions made by Michael fuchs MD Status of Scribe Document: Viewed
[2019-11-16 12:46] LABS: Albumin 4.5 g/dL (3.2-5.2); Albumin/Globulin Ratio 1.4 (1-3); BUN/Creatinine Ratio 16.7 (8-20); C Reactive Protein 8.16 mg/L (<8.01); Calcium 9.7 mg/dL (8.6-10.3); EGFR African American 81.3 (>60); EGFR Non-African American 67.2 (>60); Globulin 3.2 g/dL (2-4); Total Bilirubin 0.3 mg/dL (0.2-1.0); Total Protein 7.7 g/dL (6.4-8.9)
[2019-11-16] MEDS ORDERED: Potassium Chlor TAB* 20 MEQ TAB.ER PO ONE (12:51)
[2019-11-16] MEDS ORDERED: NS 0.9% 1000 ML** 1,000 ML IV ONE (12:51)
[2019-11-16 13:24] LABS: Urine Appearance Cloudy; Urine Bilirubin Negative (Negative); Urine Blood 1+ (Negative); Urine Color Yellow; Urine Glucose Negative (Negative); Urine Ketones Negative (Negative); Urine Nitrite Negative (Negative); Urine Protein Negative (Negative); Urine Urobilinogen Negative (Negative)
[2019-11-16 13:30] LABS: Influenza A Molecular POSITIVE (Negative)
[2019-11-16 13:34] LABS: Magnesium 1.7 mg/dL (1.9-2.7)
[2019-11-16 13:38] LABS: Urine Bacteria Absent (Absent); Urine Red Blood Cell 2+(6-10/hpf) (Absent); Urine Squamous Epithelial Cell Present (Absent); Urine White Blood Cell 2+(11-20/hpf) (Absent)
[2019-11-16] MEDS ORDERED: Magnesium Oxide TAB* 400 MG PO ONE (13:42)
[2019-11-16] MEDS ORDERED: Oseltamivir CAP* 75 MG CAP PO ONE (14:09)
[2019-11-16 15:38] VITALS: BP 133/68
== END 2019-11-16 15:21 | disposition home or self-care (01) ==
LOC: ED 10:54
DX: J09.X2 Influenza due to identified novel influenza A virus with other respiratory manifestations (principal); E05.90 Thyrotoxicosis, unspecified without thyrotoxic crisis or storm; I10 Essential (primary) hypertension; J45.909 Unspecified asthma, uncomplicated; F41.0 Panic disorder [episodic paroxysmal anxiety]; Z86.73 Personal history of transient ischemic attack (TIA), and cerebral infarction without residual deficits; Z87.891 Personal history of nicotine dependence; Z79.82 Long term (current) use of aspirin; Z79.899 Other long term (current) drug therapy; Z88.1 Allergy status to other antibiotic agents; Z88.0 Allergy status to penicillin; Z88.8 Allergy status to other drugs, medicaments and biological substances
CPT/HCPCS: 36415; 71046; 80053; 81003; 81015; 83605; 83735; 85025; 86140; 87086; 96360; 96361; 99283; A9270-GY

== ENCOUNTER 2019-11-22 12:44 | Emergency (ER) | payer MEDICARE ==
[2019-11-22 12:55] VITALS: BP 165/91
--- NOTE | 2019-11-22 13:12 | UC ---
Respiratory Complaint HPI - HPI Summary HPI Summary: Dx with Flu A 6 days ago has history of asthma fever are resolved but feels like she needs to use her neb frequently- - History of Current Complaint Chief Complaint: UCRespiratory Stated Complaint: DIFFICULTY BEATHING,DIAGNOSED FLU A Time Seen by Provider: 11/22/19 13:04 Hx Obtained From: Patient ?: No Onset/Duration: Gradual Onset, Lasting Days - 6, Still Present Timing: Constant Pain Intensity: 0 Character: Cough: Nonproductive Aggravating Factors: Recumbent Position Alleviating Factors: Bronchodilator Associated Signs And Symptoms: Positive: Negative - Allergies/Home Medications Allergies/Adverse Reactions: Allergies Allergy/AdvReac Type Severity Reaction Status Date / Time Adhesive Tape Allergy Intermediate Rash Verified 11/22/19 12:56 amoxicillin Allergy Rash Verified 11/22/19 12:56 clopidogrel [From Plavix] Allergy See Comment Verified 11/22/19 12:56 nitrofurantoin Allergy Bleeding Verified 11/22/19 12:56 pregabalin [From Lyrica] Allergy Altered Verified 11/22/19 12:56 Mental Status Quinolones Allergy See Comment Verified 11/22/19 12:56 sucrose Allergy Unknown Verified 11/22/19 12:56 Reaction Details HFA Allergy Coughing Uncoded 11/22/19 12:56 beta blockers AdvReac Severe See Comment Uncoded 11/22/19 12:56 keytac AdvReac Intermediate Diarrhea Uncoded 11/22/19 12:56 Home Medications: Home Medications Montelukast Sodium TAB* [Singulair 10 MG TAB*] 10 mg PO BEDTIME 11/01/13 [ History Confirmed 11/22/19] Budesonide Flexhaler 180 (NF) [Pulmicort Flexhaler 180 mcg/act (NF)] 2 puff INH BID 03/30/15 [History Confirmed 11/22/19] Cholecalciferol TAB* [Vitamin D TAB*] 1,000 unit PO DAILY 03/30/15 [History Confirmed 11/22/19] Fluticasone NASAL SPRAY 50MCG* [Flonase NASAL SPRAY 50MCG*] 1 spray BOTH NARES BID 03/30/15 [History Confirmed 11/22/19] HYDROcodone/ACETAMIN 5-325 MG* [[place] 5-325 TAB*] 1 tab PO BEDTIME 03/30/15 [ History Confirmed 11/22/19] Aspirin EC TAB* [Ecotrin EC Low Dose 81 MG*] 81 mg PO DAILY 02/15/16 [History Confirmed 11/22/19] Cefdinir cap* [Cefdinir 300 MG cap (NF)] 300 mg PO BID #20 cap 11/22/19 [Rx] Ondansetron HCl [Zofran] 4 mg PO QID PRN #12 tablet 11/22/19 [Rx] PMH/Surg Hx/FS Hx/Imm Hx Previously Healthy: No Respiratory History: Asthma - Surgical History Surgical History: Yes Surgery Procedure, Year, and Place: sinus surgery - Family History Known Family History: Positive: Hypertension, Other - autoimmune conditions Negative: Cardiac Disease - Social History Occupation: Retired Lives: With Family Alcohol Use: None Substance Use Type: None Smoking Status (MU): Former Smoker - Immunization History Most Recent Influenza Vaccination: Fall 2013 Most Recent Tetanus Shot: Within last 10 years Most Recent Pneumonia Vaccination: None Review of Systems All Other Systems Reviewed And Are Negative: Yes Constitutional: Positive: Negative Skin: Positive: Negative Eyes: Positive: Negative ENT: Positive: Negative Respiratory: Positive: Shortness Of Breath, Cough Cardiovascular: Positive: Negative Gastrointestinal: Positive: Negative Genitourinary: Positive: Negative Motor: Positive: Negative Neurovascular: Positive: Negative Musculoskeletal: Positive: Negative Neurological/Mental Status: Positive: Negative Psychological: Positive: Negative Is Patient Immunocompromised?: No Physical Exam Triage Information Reviewed: Yes Appearance: Well-Appearing, No Pain Distress, Well-Nourished Vital Signs: Initial Vital Signs Temp 97.2 F 11/22/19 12:51 Pulse 70 11/22/19 12:51 Resp 16 11/22/19 12:51 BP 165/91 11/22/19 12:51 Pulse Ox 98 11/22/19 12:51 Vital Signs Reviewed: Yes Eye Exam: Normal Eyes: Positive: Conjunctiva Clear ENT Exam: Normal ENT: Positive: Normal ENT inspection, Hearing grossly normal. Negative: Nasal congestion, Trismus, Muffled voice, Hoarse voice Dental Exam: Normal Neck exam: Normal Neck: Positive: Supple, Nontender, No Lymphadenopathy Respiratory Exam: Normal Respiratory: Positive: Chest non-tender, Lungs clear, Normal breath sounds, No respiratory distress, No accessory muscle use Cardiovascular Exam: Normal Cardiovascular: Positive: RRR, No Murmur, Pulses Normal, Brisk Capillary Refill Abdominal Exam: Normal Abdomen Description: Positive: Nontender Musculoskeletal Exam: Normal Musculoskeletal: Positive: Strength Intact, ROM Intact, No Edema Neurological Exam: Normal Neurological: Positive: Alert, Muscle Tone Normal Psychological Exam: Normal Skin Exam: Normal Diagnostics - Radiology No standard instances Radiology Interpretation Completed By: Radiologist - no evidence of pneumonia Respiratory Course/Dx - Course Course Of Treatment: discussed options of developing an overlying bacterial PNA vs Bronchospasm--- patient wishing to treat with A/B will follow with pcp this week continue neb and go to ED if symptoms worsen - Differential Dx/Diagnosis Provider Diagnosis: Bronchospasm, Influenza A Discharge ED - Sign-Out/Discharge Documenting (check all that apply): Patient Departure All imaging exams completed and their final reports reviewed: Yes - Discharge Plan Condition: Stable Disposition: HOME Prescriptions: Cefdinir cap* [Cefdinir 300 MG cap (NF)] 300 mg PO BID #20 cap Ondansetron HCl [Zofran] 4 mg PO QID PRN #12 tablet PRN Reason: nausea/vomiting Patient Education Materials: Viral Syndrome (ED), Hypertension (ED), Bronchospasm (ED) Referrals: Tomasa Allen MD [Primary Care Provider] - 1 Week - Billing Disposition and Condition Condition: STABLE Disposition: Home
== END 2019-11-22 14:47 | disposition home or self-care (01) ==
LOC: UCEAST 12:44
DX: J10.1 Influenza due to other identified influenza virus with other respiratory manifestations (principal); J98.01 Acute bronchospasm; Z88.8 Allergy status to other drugs, medicaments and biological substances; Z87.891 Personal history of nicotine dependence; Z91.09 Other allergy status, other than to drugs and biological substances; Z88.0 Allergy status to penicillin
CPT/HCPCS: 71046; 99212; G0463